=== PATIENT | female | born 1980 | race Caucasian/White ===

== ENCOUNTER 2023-06-17 20:38 | Inpatient (IN) ==
[2023-06-17] MEDS ORDERED: INFLUENZA VIRUS QUADRIVALENT VACCINE (IIV4) 0.5 ML SYR IM ONE (21:14)
[2023-06-17] MEDS ORDERED: LIDOCAINE 1% LOCAL 20 ML VIAL INFIL PRN (21:26)
[2023-06-17] MEDS ORDERED: OXYTOCIN 30 UNITS/500 ML BAG IV PRN (21:26)
[2023-06-17] MEDS ORDERED: DINOPROSTONE 10 MG INSERT PV ONE (21:45)
--- NOTE | 2023-06-17 21:58 | History & Physical Report ---
Date of Service June 17, 2023 Assessment & Plan (1) Advanced maternal age in multigravida: Plan: Patient is a 42-year-old -0-0-1 at 39 weeks and 6 days of gestation presenting today for induction of labor at term, Vital signs stable afebrile, heart rate reassuring, GBS negative, Cervix unfavorable, Plan to admit, labs, IV fluids, cervical ripening with Cervidil, Patient understands induction may take 1 to 2 days and explained what to expect, All questions were answered. Admission and Anticipated Discharge Date Admission Date: June 17, 2023 History of Present Illness Chief Complaint: Induction of labor Primary Care Provider: Mary López MD Patient is a 42-year-old -0-0-1 at 39 weeks and 6 days of gestation who was scheduled for induction of labor at term for advanced maternal age. She has no complaints, denies contractions, leakage of fluid, vaginal bleeding. She reports good movements. Her has been uncomplicated except AMA, genetic testing was negative/low risk. She has seen MFM and had ultrasound twice and they were normal. She had COVID-19 during this at 29 weeks, recovered well. GBS is negative. Allergies Allergy/AdvReac Type Severity Reaction Status Date / Time No Known Allergies Allergy Unverified 06/17/23 21:00 Home Medications Medication Instructions Recorded Confirmed Type vit no.95-ferrous 1 tab PO DAILY 06/17/23 06/17/23 History fumarate 28 mg-folic acid 800 mcg tablet () Patient History Medical History No known health problems Surgical History No history of previous surgery Social History Smoking Status: Never smoker Hx Alcohol Use: No Hx Substance Use: No Preferred Language: Czech Communication Ability: Effective Commodity Merchant Required: No Beliefs That Will Affect Care: None marital status: marital status details: Forrest Riojas Current Living Situation: Spouse and Family Current Living Situation Comment: and 16 year old daughter. current occupational status: employed current occupation: [employer] Other Information That Helps Us Care for You: No Feels Safe at Home: Yes Safety Concerns: Feels Safe At This Time Diet: regular Assistive Devices: None OB History Full-term on [employer] History No history of STDs, no history of chlamydia, gonorrhea, herpes Review of Systems as per Subjective / HPI Physical Exam Constitutional: WD/WN, vitals as above well developed, well nourished and comfortable Gastrointestinal (Abdomen): normal bowel sounds, soft, nontender, no hepatosplenomegaly (Gravid, Jacinto 7-8) Genitourinary: normal external appearance OB Exam Abdomen: + vertex (Confirmed by bedside ultrasound) Manual OB Exam: + cervical dilation (0, closed, thick, posterior) and + station high OB Exam Monitor Tracing: + external uterine monitor used and + category I Results & Data Vital Signs (Past 12 Hours) Vital Signs Temp Pulse Resp BP 06/17/23 21:06 86 130/68 06/17/23 21:01 37.1 C 18 Monitoring External Monitor The heart rate category 1, baseline of 130s to 140s, moderate variability, good accelerations, there was episode of maternal heart rate when the patient was sitting up. (1) Advanced maternal age in multigravida Trimester: third trimester Qualified Code(s): O09.523 - Supervision of elderly multigravida, third trimester
[2023-06-17 21:59] LABS: Hematocrit (blood only) 33.3 % (37.0-47.0); Hemoglobin 11.5 g/dl (12.0-16.0); Mean Corpuscular Hgb Conc 34.5 g/dL (32.0-36.0); Mean Corpuscular Volume 86.9 fL (80.0-100.0); Mean Platelet Volume 10.5 fL (9.4-12.4); Platelet Count 269 K/uL (130-400); RDW Coefficient of Variation 13.4 % (11.5-14.5); RDW Standard Deviation 41.3 fL (36.4-46.3); Red Blood Count 3.83 M/uL (4.20-5.40)
[2023-06-17 22:13] LABS: Albumin Globulin Ratio 1.2 (0.9-2); Albumin Level 3.5 gm/dl (3.4-5.0); BUN Creatinine Ratio 14.8 (10-20); Bilirubin,Total 0.3 mg/dl (0.2-1.0); Calcium 9.6 mg/dl (8.6-10.3); Creatinine Clr Calc Pharmacy 129.9 ml/min; Est GFR (African American) 129.6 ml/min; Est GFR (Non-African American) 111.8 ml/min; Potassium 3.7 mmol/L (3.5-5.1); Total Protein 6.5 gm/dl (6.0-8.3)
[2023-06-17] MEDS ORDERED: diphenhydrAMINE Capsule 25 MG CAP PO PRN (22:35)
[2023-06-17] MEDS ORDERED: MELATONIN 3 MG TAB PO PRN (22:35)
[2023-06-17] MEDS ORDERED: BUTORPHANOL TARTRATE 1 MG/ML VIAL IV PRN (22:35)
--- NOTE | 2023-06-17 22:35 | Procedure Note ---
Procedure Note Date of Service June 17, 2023 Note Cervidil is placed in posterior cervix. FHR categ I Continue to monitor closely. Coding
[2023-06-17] MEDS ORDERED: NALOXONE HCL 1 MG in SODIUM CHLORIDE 0.9% 1,000 ML IV PRN (22:41)
[2023-06-17] MEDS ORDERED: BUPIVACAINE 0.25% PF 30 ML VIAL EPI STA (22:41)
[2023-06-17] MEDS ORDERED: fentaNYL citrate PF 100 MCG/2 ML VIAL EPI PRN (22:41)
[2023-06-17] MEDS ORDERED: ROPIVACAINE 0.5% PF 5 MG/ML 20 ML VIAL EPI PRN (22:41)
[2023-06-17] MEDS ORDERED: LIDOCAINE 2%/EPINEPHRINE 1:200,000 20 ML PF EPI STA (22:41)
[2023-06-17] MEDS ORDERED: LIDOCAINE 2% MPF LOCAL 5 ML VIAL EPI PRN (22:41)
[2023-06-17] MEDS ORDERED: diphenhydrAMINE 50 MG/ML VIAL IV PRN (22:41)
[2023-06-17] MEDS ORDERED: SODIUM CHLORIDE 0.9% PF INJ 10 ML VIAL EPI PRN (22:41)
[2023-06-17] MEDS ORDERED: SODIUM CHLORIDE 0.9% PF INJ 10 ML VIAL EPI STA (22:41)
[2023-06-17] MEDS ORDERED: fentaNYL citrate PF 100 MCG/2 ML VIAL EPI STA (22:41)
[2023-06-17] MEDS ORDERED: ONDANSETRON INJ 2 MG/ML 2 ML VIAL IV PRN (22:41)
[2023-06-17] MEDS ORDERED: ePHEDrine sulfate 50 MG/ML AMP IV PRN (22:41)
[2023-06-17] MEDS ORDERED: BUPIVACAINE 0.25% PF 30 ML VIAL EPI PRN (22:41)
[2023-06-17] MEDS ORDERED: NALOXONE HCL 0.4 MG/1 ML VIAL/CARP IV PRN (22:41)
[2023-06-17] MEDS ORDERED: NALBUPHINE HCL 5 MG in SYRINGE 0 ML IV PRN (22:41)
[2023-06-17] MEDS ORDERED: fentANYL 2 MCG/ML BUPIVacaine 0.125%-NSS 100ML BAG EPI PRN (22:41)
--- NOTE | 2023-06-17 22:42 | Anesthesiology Consultation ---
Date of Service June 17, 2023 Assessment & Plan Chart Review Chart Review: Patient NOT seen in Pre Admission Testing and Acceptable Risk for Labor Epidural Consults Requested none ASA ASA2 Proposed Anesthesia Anesthesia Type: Labor Epidural Risk / Benefits Reviewed With: PT / POA / Parent / Guardian, Accepts Plan and Informed Consent Obtained History Height/Weight Height: 5 ft 5 in Weight: 85.729 kg Allergies Allergy/AdvReac Type Severity Reaction Status Date / Time No Known Allergies Allergy Unverified 06/17/23 21:00 Medications Home Medications Medication Instructions Recorded Confirmed Last Taken vit no.95-ferrous 1 tab PO DAILY 06/17/23 06/17/23 06/17/23 09:00 fumarate 28 mg-folic acid 800 mcg tablet () Past Medical History Medical History No known health problems Exercise / Class Metabolic Activity II 4-5 Yardwork/Stairs/Walk up hill Past Surgical History Surgical History No history of previous surgery Past Anesthesia History No Hx of Anesthesia Complications and No Family Hx of Anesthesia Complications History of PONV No Hx of PONV and No Hx of Motion Sickness Social History Smoking Status: Never smoker Hx Alcohol Use: No Hx Substance Use: No substance use type: does not use Physical Exam Vital Signs Last Vital Signs Temp 37.1 C 06/17/23 21:01 Pulse 86 06/17/23 21:06 Resp 18 06/17/23 21:01 BP 130/68 06/17/23 21:06 ENMT Mouth: no dentition abnormality Thyromental Distance: > or= 3.5 Finger Breadths Mallampati Class: II Neck normal visual inspection Respiratory normal respiratory effort Auscultation: lungs clear to auscultation bilaterally Cardiovascular Rate/Rhythm: regular rate and regular rhythm Psychiatric Orientation: alert Testing Laboratory Results 06/17/23 21:36 06/17/23 21:36
[2023-06-18] MEDS ORDERED: CALCIUM CARBONATE 500 MG CHEWABLE TAB PO PRN (11:36)
--- NOTE | 2023-06-18 11:36 | Obstetrical Progress Note ---
Date of Service June 18, 2023 Assessment & Plan (1) Advanced maternal age in multigravida: Plan: Misoprostol 25 mcg SL q4h Pit after AROM Epidural if patient requests Anticipate Admission and Anticipated Discharge Date Admission Date: June 17, 2023 Subjective Patient was walking, Cervidil was removed without issues Physical Exam Genitourinary: FHT:baseline 150 mod variability, +accels, no decls, cat I tracing Nolic: irregular ctx Cx:1.5/10/-3 membranes swept Results & Data Vital Signs (Past 12 Hours) Vital Signs Temp Pulse Resp BP 06/18/23 07:40 36.9 C 20 06/18/23 07:31 74 129/75 06/18/23 02:30 18 06/18/23 02:30 36.9 C 18 06/18/23 02:01 93 H 118/69 (1) Advanced maternal age in multigravida Trimester: third trimester Qualified Code(s): O09.523 - Supervision of elderly multigravida, third trimester
[2023-06-18] MEDS: miSOPROStoL 25 MCG TAB SL SCH ×2 (11:43→20:09)
[2023-06-18] MEDS ORDERED: OXYTOCIN 30 UNITS/500 ML BAG IV PRN (16:18)
--- NOTE | 2023-06-18 16:20 | Obstetrical Progress Note ---
Date of Service June 18, 2023 Assessment & Plan (1) Advanced maternal age in multigravida: Plan: Misoprostol s/p 1 dose Start oxytocin for augmentation Epidural if patient requests Anticipate Admission and Anticipated Discharge Date Admission Date: June 17, 2023 Subjective Patient doing well, contractions more painful. Agreeable to AROM Physical Exam Genitourinary: FHT: baseline 140 moderate variability, +accels, no decls, cat I tracing [place]: every 2-3 min Cx; 2.5/50/-3 AROM, moderate blood tinged fluid, no cord felt, no complications. Results & Data Vital Signs (Past 12 Hours) Vital Signs Temp Pulse Resp BP 06/18/23 15:53 75 135/76 06/18/23 11:33 36.7 C 85 20 130/68 06/18/23 07:40 36.9 C 20 06/18/23 07:31 74 129/75 (1) Advanced maternal age in multigravida Trimester: third trimester Qualified Code(s): O09.523 - Supervision of elderly multigravida, third trimester
[2023-06-18] MEDS: LACTATED RINGER'S 1,000 ML IV PRN ×2 (17:27→20:45)
[2023-06-18] MEDS ORDERED: fentaNYL citrate PF 100 MCG/2 ML VIAL ONE (20:16)
[2023-06-18] MEDS ORDERED: ePHEDrine sulfate 50 MG/ML AMP ONE (20:16)
[2023-06-18] MEDS ORDERED: BUPIVACAINE 0.25% PF 30 ML VIAL ONE (20:17)
[2023-06-18] MEDS ORDERED: SODIUM CHLORIDE 0.9% PF INJ 10 ML VIAL ONE (20:17)
[2023-06-18] MEDS ORDERED: LIDOCAINE 2%/EPINEPHRINE 1:200,000 20 ML PF ONE (20:17)
[2023-06-18] MEDS ORDERED: fentANYL 2 MCG/ML BUPIVacaine 0.125%-NSS 100ML BAG ONE (20:17)
[2023-06-18] MEDS ORDERED: diphenhydrAMINE 50 MG/ML VIAL IV PRN (20:37)
[2023-06-18] MEDS ORDERED: NALOXONE HCL 0.4 MG/1 ML VIAL/CARP IV PRN (20:37)
[2023-06-18] MEDS ORDERED: fentaNYL citrate PF 100 MCG/2 ML VIAL EPI PRN (20:37)
[2023-06-18] MEDS ORDERED: NALOXONE HCL 1 MG in SODIUM CHLORIDE 0.9% 1,000 ML IV PRN (20:37)
[2023-06-18] MEDS ORDERED: BUPIVACAINE 0.25% PF 30 ML VIAL EPI PRN (20:37)
[2023-06-18] MEDS ORDERED: LIDOCAINE 2% MPF LOCAL 5 ML VIAL EPI PRN (20:37)
[2023-06-18] MEDS ORDERED: BUPIVACAINE 0.25% PF 30 ML VIAL EPI STA (20:37)
[2023-06-18] MEDS ORDERED: SODIUM CHLORIDE 0.9% PF INJ 10 ML VIAL EPI STA (20:37)
[2023-06-18] MEDS ORDERED: ROPIVACAINE 0.5% PF 5 MG/ML 20 ML VIAL EPI PRN (20:37)
[2023-06-18] MEDS ORDERED: NALBUPHINE HCL 5 MG in SYRINGE 0 ML IV PRN (20:37)
[2023-06-18] MEDS ORDERED: ePHEDrine sulfate 50 MG/ML AMP IV PRN (20:37)
[2023-06-18] MEDS ORDERED: fentaNYL citrate PF 100 MCG/2 ML VIAL EPI STA (20:37)
[2023-06-18] MEDS ORDERED: LIDOCAINE 2%/EPINEPHRINE 1:200,000 20 ML PF EPI STA (20:37)
[2023-06-18] MEDS ORDERED: SODIUM CHLORIDE 0.9% PF INJ 10 ML VIAL EPI PRN (20:37)
--- NOTE | 2023-06-18 20:40 | Anesthesiology Consultation ---
Date of Service June 18, 2023 Assessment & Plan Chart Review Chart Review: Patient NOT seen in Pre Admission Testing and Acceptable Risk for Labor Epidural Consults Requested none ASA ASA2 Proposed Anesthesia Anesthesia Type: Labor Epidural Risk / Benefits Reviewed With: PT / POA / Parent / Guardian, Accepts Plan and Informed Consent Obtained History Height/Weight Height: 5 ft 5 in Weight: 85.729 kg Allergies Allergy/AdvReac Type Severity Reaction Status Date / Time No Known Allergies Allergy Unverified 06/17/23 21:00 Medications Home Medications Medication Instructions Recorded Confirmed Last Taken vit no.95-ferrous 1 tab PO DAILY 06/17/23 06/17/23 06/17/23 09:00 fumarate 28 mg-folic acid 800 mcg tablet () Active Medications Generic Name Dose Route Start Last Admin Trade Name Freq PRN Reason Stop Dose Admin Calcium Carbonate 500 mg 06/18/23 11:36 06/18/23 11:44 Calcium Carbonate 500 Mg Chewable Tab PO 07/18/23 11:35 500 mg Q4 PRN Administration Indigestion Lactated Ringer's 1,000 mls @ 150 mls/hr 06/17/23 21:26 06/18/23 20:45 Lr IV 06/19/23 21:25 125 mls/hr .[id number] PRN Administration L&D Protocol Protocol Oxytocin 30 units in 500 mls @ 6 mls/hr 06/18/23 16:18 06/18/23 20:45 Pitocin IV 06/20/23 16:17 0.48 units/hr .Q24H PRN 8 mls/hr Labor Induction/Augmentation Titration Protocol 0.36 UNITS/HR Melatonin 3 mg 06/17/23 22:35 06/17/23 23:11 Melatonin 3 Mg Tab PO 07/17/23 22:34 3 mg HS PRN Administration Sleep NPO Date Last Intake of Fluids: 06/18/23 Time Last Intake of Fluids: 20:00 Date Last Intake of Solids: 06/18/23 Time Last Intake of Solids: 17:00 Past Medical History Medical History No known health problems Exercise / Class Metabolic Activity 1 > 8 Run/Swim/Ski/Tennis Past Surgical History Surgical History No history of previous surgery Past Anesthesia History No Hx of Anesthesia Complications and No Family Hx of Anesthesia Complications History of PONV No Hx of PONV and No Hx of Motion Sickness Social History Smoking Status: Never smoker Hx Alcohol Use: No Hx Substance Use: No substance use type: does not use Review of Systems ROS Unobtainable: All systems reviewed & are unremarkable except as noted in HPI & below Physical Exam Vital Signs Last Vital Signs Temp 36.7 C 06/18/23 19:00 Pulse 85 06/18/23 20:32 Resp 18 06/18/23 19:00 BP 117/72 06/18/23 19:03 Pulse Ox 99 06/18/23 20:32 ENMT Mouth: no TMJ abnormality Thyromental Distance: > or= 3.5 Finger Breadths Mallampati Class: II Neck normal visual inspection and trachea midline; neck extension not limited Respiratory normal respiratory effort Auscultation: lungs clear to auscultation bilaterally Cardiovascular Rate/Rhythm: regular rate and regular rhythm Heart Sounds: no murmur Musculoskeletal Spine: normal cervical ROM Extremities: full ROM of extremities Neurologic moves all extremities Psychiatric Orientation: alert and oriented x 3 Testing Laboratory Results 06/17/23 21:36 06/17/23 21:36
[2023-06-19] MEDS: LACTATED RINGER'S 1,000 ML IV PRN ×3 (00:46→08:42)
[2023-06-19] MEDS: fentANYL 2 MCG/ML BUPIVacaine 0.125%-NSS 100ML BAG EPI PRN ×2 (05:35→08:11)
--- NOTE | 2023-06-19 06:35 | Obstetrical Progress Note ---
Date of Service June 19, 2023 Assessment & Plan (1) Advanced maternal age in multigravida: Plan: Patient to stop pushing at this time as she is not complete, nursing staff updated Will allow anterior lip to resolve prior to pushing Anticipate Admission and Anticipated Discharge Date Admission Date: June 17, 2023 Subjective Patient has been pushing with nursing. Called complete overnight by nursing staff Physical Exam Genitourinary: heart tracing: Baseline 150, minimal to moderate variability, no accelerations, variable decelerations, category 2 tracing Tocometer: Contractions every 3 to 6 minutes Cervix: Swollen anterior lip/100, 0 station, caput noted Results & Data Vital Signs (Past 12 Hours) Vital Signs Temp Pulse Resp BP Pulse Ox 06/19/23 06:31 109 H 122/64 06/19/23 06:30 106 H 97 06/19/23 06:25 98 06/19/23 06:25 125 H 06/19/23 06:25 132 H 89 L 06/19/23 06:20 123 H 79 L 06/19/23 06:16 123 H 134/66 06/19/23 06:15 126 H 86 L 06/19/23 06:10 120 H 99 06/19/23 06:05 116 H 98 06/19/23 06:01 118 H 125/73 06/19/23 06:00 37.1 C 119 H 18 98 06/19/23 05:57 122 H 86 L 06/19/23 05:55 121 H 99 06/19/23 05:50 111 H 84 L 06/19/23 05:46 125 H 06/19/23 05:46 116 H 130/71 83 L 06/19/23 05:45 119 H 92 06/19/23 05:40 106 H 99 06/19/23 05:35 130 H 99 06/19/23 05:32 122 H 87 L 06/19/23 05:31 107 H 138/70 06/19/23 05:30 111 H 98 06/19/23 05:25 118 H 99 06/19/23 05:20 111 H 99 06/19/23 05:16 117 H 117/64 06/19/23 05:15 111 H 100 06/19/23 05:10 104 H 97 06/19/23 05:05 98 H 97 06/19/23 05:01 108 H 110/56 L 06/19/23 05:00 37.1 C 107 H 18 98 06/19/23 04:55 103 H 98 06/19/23 04:50 100 H 98 06/19/23 04:46 100 H 117/61 06/19/23 04:45 100 H 99 06/19/23 04:40 106 H 99 06/19/23 04:35 112 H 100 06/19/23 04:31 115 H 128/63 06/19/23 04:30 148 H 100 06/19/23 04:25 105 H 99 06/19/23 04:20 108 H 99 06/19/23 04:16 110 H 132/77 06/19/23 04:15 110 H 100 06/19/23 04:10 104 H 100 06/19/23 04:05 110 H 100 06/19/23 04:01 107 H 130/82 06/19/23 04:00 107 H 18 99 06/19/23 03:55 104 H 100 06/19/23 03:50 112 H 100 06/19/23 03:46 99 H 139/79 06/19/23 03:45 94 H 100 06/19/23 03:40 98 H 100 06/19/23 03:35 98 H 100 06/19/23 03:32 100 H 144/77 H 06/19/23 03:30 101 H 100 06/19/23 03:25 111 H 95 06/19/23 03:20 99 H 100 06/19/23 03:16 111 H 135/79 06/19/23 03:15 109 H 100 06/19/23 03:10 106 H 100 06/19/23 03:05 103 H 100 06/19/23 03:02 86 130/71 06/19/23 03:00 37.6 C H 84 18 100 06/19/23 02:55 94 H 99 06/19/23 02:50 93 H 98 06/19/23 02:46 93 H 125/74 06/19/23 02:45 88 99 06/19/23 02:40 96 H 99 06/19/23 02:35 100 H 100 06/19/23 02:31 92 H 137/76 06/19/23 02:30 93 H 99 06/19/23 02:25 89 98 06/19/23 02:20 89 98 06/19/23 02:17 95 H 135/77 06/19/23 02:15 101 H 100 06/19/23 02:10 95 H 100 06/19/23 02:05 95 H 100 06/19/23 02:00 97 H 18 132/68 100 06/19/23 01:55 96 H 100 06/19/23 01:50 103 H 100 06/19/23 01:47 100 H 131/81 06/19/23 01:45 100 H 100 06/19/23 01:40 100 H 100 06/19/23 01:35 103 H 100 06/19/23 01:30 98 H 129/65 100 06/19/23 01:25 106 H 100 06/19/23 01:19 106 H 100 06/19/23 01:15 109 H 131/60 06/19/23 01:14 116 H 100 06/19/23 01:09 102 H 100 06/19/23 01:04 99 H 100 06/19/23 01:00 36.9 C 96 H 18 132/71 06/19/23 00:59 105 H 98 06/19/23 00:54 104 H 100 06/19/23 00:49 122 H 100 06/19/23 00:46 113 H 137/71 06/19/23 00:44 104 H 100 06/19/23 00:39 107 H 100 06/19/23 00:34 111 H 100 06/19/23 00:29 104 H 100 06/19/23 00:24 96 H 99 06/19/23 00:19 99 H 100 06/19/23 00:15 88 105/56 L 06/19/23 00:14 88 98 06/19/23 00:09 87 99 06/19/23 00:04 92 H 99 06/19/23 00:02 88 114/61 06/19/23 00:00 18 06/19/23 00:00 18 06/18/23 23:59 96 H 100 06/18/23 23:54 96 H 100 06/18/23 23:49 83 100 06/18/23 23:46 80 128/71 06/18/23 23:44 83 100 06/18/23 23:39 86 99 06/18/23 23:34 100 06/18/23 23:34 105 H 11/10/23 23:34 96 H 141/74 H 06/18/23 23:33 118 H 94 06/18/23 23:29 87 100 06/18/23 23:24 91 H 100 06/18/23 23:19 92 H 100 06/18/23 23:15 86 109/58 L 06/18/23 23:14 89 99 06/18/23 23:09 87 100 06/18/23 23:04 91 H 100 06/18/23 23:01 83 113/58 L 06/18/23 23:00 18 06/18/23 23:00 36.9 C 18 06/18/23 22:59 85 100 06/18/23 22:54 100 H 100 06/18/23 22:49 96 H 100 06/18/23 22:45 93 H 107/56 L 06/18/23 22:44 93 H 100 06/18/23 22:39 94 H 100 06/18/23 22:34 86 100 06/18/23 22:32 81 113/58 L 06/18/23 22:29 91 H 98 06/18/23 22:24 76 97 06/18/23 22:19 77 97 06/18/23 22:16 80 98/56 L 06/18/23 22:14 83 97 06/18/23 22:12 78 109/57 L 06/18/23 22:09 77 97 06/18/23 22:05 88 112/58 L 06/18/23 22:04 90 97 06/18/23 22:00 83 18 120/65 06/18/23 21:59 80 97 06/18/23 21:55 96 H 129/72 06/18/23 21:54 103 H 98 06/18/23 21:52 116 H 137/78 06/18/23 21:49 113 H 100 06/18/23 21:46 85 116/59 L 06/18/23 21:44 88 98 06/18/23 21:40 98 H 117/57 L 06/18/23 21:39 97 H 98 06/18/23 21:35 100 H 125/63 06/18/23 21:34 107 H 99 06/18/23 21:31 103 H 135/63 06/18/23 21:30 18 06/18/23 21:30 18 06/18/23 21:29 98 H 99 06/18/23 21:26 106 H 142/71 H 06/18/23 21:24 113 H 98 06/18/23 21:21 115 H 138/69 06/18/23 21:19 96 H 98 06/18/23 21:18 97 H 123/58 L 06/18/23 21:16 100 H 123/60 06/18/23 21:15 18 06/18/23 21:15 18 06/18/23 21:15 18 06/18/23 21:15 18 06/18/23 21:14 92 H 111/54 L 97 06/18/23 21:12 101 H 120/60 06/18/23 21:10 100 H 115/58 L 06/18/23 21:09 111 H 98 06/18/23 21:08 99 H 134/58 L 06/18/23 21:04 82 99 06/18/23 20:59 84 99 06/18/23 20:54 119 H 100 06/18/23 20:50 18 06/18/23 20:50 36.6 C 18 06/18/23 20:47 85 98 06/18/23 20:42 89 99 06/18/23 20:37 84 98 06/18/23 20:32 85 99 06/18/23 19:03 84 117/72 06/18/23 19:00 36.7 C 18 06/18/23 19:00 18 06/18/23 19:00 36.7 C 18 06/18/23 18:36 37.0 C 79 20 117/70 (1) Advanced maternal age in multigravida Trimester: third trimester Qualified Code(s): O09.523 - Supervision of elderly multigravida, third trimester
[2023-06-19] MEDS ORDERED: LIDOCAINE 2% MPF LOCAL 5 ML VIAL ONE (08:17)
[2023-06-19] MEDS ORDERED: fentaNYL citrate PF 100 MCG/2 ML VIAL ONE (08:17)
[2023-06-19] MEDS ORDERED: LIDOCAINE 2%/EPINEPHRINE 1:200,000 20 ML PF ONE (08:18)
[2023-06-19] MEDS ORDERED: NURSING L&D Epidural Breakthrough Pain Update ONE (08:25)
[2023-06-19] MEDS ORDERED: miSOPROStoL 200 MCG TAB ONE (11:17)
[2023-06-19] MEDS ORDERED: METHYLERGONOVINE MALEATE 0.2 MG/ML AMP ONE (11:18)
[2023-06-19] MEDS ORDERED: HYDROCORTISONE ACETATE 25 MG SUPP PR PRN (11:29)
[2023-06-19] MEDS ORDERED: BENZOCAINE 20% SPRY 85 APPLN/85 GM CAN EXT PRN (11:29)
[2023-06-19] MEDS ORDERED: DIPHTHERIA/TETANUS/PERTUSSIS Vaccine (Tdap, Age 7+yrs) 0.5mL SYR/VL IM ONE (11:29)
[2023-06-19] MEDS ORDERED: OXYTOCIN 30 UNITS/500 ML BAG IV PRN (11:29)
[2023-06-19] MEDS ORDERED: miSOPROStoL 200 MCG TAB PR ONE (11:29)
[2023-06-19] MEDS ORDERED: METHYLERGONOVINE MALEATE 0.2 MG/ML AMP IM ONE (11:29)
[2023-06-19] MEDS ORDERED: bisacodyL 10 MG SUPP PR PRN (11:29)
--- NOTE | 2023-06-19 11:29 | Delivery Summary ---
Vaginal Delivery Summary Date of Service June 19, 2023 Vaginal Delivery Summary DELIVERY NOTE Patient delivered a live female in left occiput anterior presentation there was loose nuchal cord which was easily reduced. was delivered and placed on mother's abdomen. Delayed cord clamping was performed. Cord blood is obtained Cord gasses are obtained Meconium is absent Placenta is spontaneously delivered. Placenta appears grossly normal and has 3 vessel cord Inspection of the perineum showed a second-degree midline laceration. Laceration is repaired in layers with 2-0 Vicryl in layers Rectal exam post repair showed good sphincter tone no sutures palpated in the rectum. Estimated blood loss is 450 cc per Infants weight and scores are in the pediatric record Mother and baby are stable in in the recovery
--- NOTE | 2023-06-19 11:37 | Anesthesia Procedure Note ---
Date of Service June 19, 2023 Anesthesia Epidural Re-Dose Vital Signs Temp Pulse Resp BP Pulse Ox 37.6 C H 113 H 24 132/67 100 06/19/23 10:28 06/19/23 11:23 06/19/23 11:00 06/19/23 11:23 06/19/23 11:20 Notes Pain Intensity: 8 Dilatation (cm): 10.0 Effacement (%): 100 Called by nursing to evaluate epidural as the patient is having increased pain. The epidural was re-dosed with the following medications (all medications via epidural route) after negative aspiration of the epidural catheter for CSF/HEME. 2% lidocaine 5ml with fentanyl 100mcg. After Epidural Re-Dose Mental Status: alert / awake / arousable Pain: improving with treatment Airway Patency, RR, SpO2: stable & adequate BP & HR: stable & adequate
[2023-06-19 12:39] LABS: Base Excess Cord Arterial Bld -8.2 mEq/L (-9-1.8); Base Excess Cord Venous Blood -7.4 mEq/L (-7.7-1.9); CO2 Cord Arterial Blood 46 mmHg (39.1-73.5); Cord Venous Blood HCO3 17 mmol/L (18.4-26.8); Cord Venous Blood PCO2 32 mmHg (30.4-57.2); Cord Venous Blood PO2 38 mmHg (14.1-43.3); Cord Venous Blood pH 7.34 (7.20-7.44); HCO3 Cord Arterial Blood 19 mmol/L (19.7-28.5); O2 Saturation Cord Venous Bld 70.8 % (<68); PO2 Cord Arterial Blood 29 mmHg (4.1-31.7); pH Cord Arterial Blood 7.23 (7.1-7.38)
[2023-06-19] MEDS: IBUPROFEN 600 MG TAB PO PRN ×3 (12:55→23:15)
[2023-06-19] MEDS: DOCUSATE SODIUM 100 MG CAP PO SCH (21:00)
[2023-06-19] MEDS: ACETAMINOPHEN 325 MG TAB PO PRN (23:16)
[2023-06-20] MEDS ORDERED: PRENATAL VITAMIN 1 TAB PO SCH (08:00)
[2023-06-20 08:07] LABS: Hematocrit (blood only) 30.2 % (37.0-47.0); Hemoglobin 10.4 g/dl (12.0-16.0); Mean Corpuscular Hemoglobin 30.1 pg (25.0-34.0); Mean Corpuscular Hgb Conc 34.4 g/dL (32.0-36.0); Mean Corpuscular Volume 87.3 fL (80.0-100.0); Mean Platelet Volume 10.6 fL (9.4-12.4); Platelet Count 222 K/uL (130-400); RDW Coefficient of Variation 14.1 % (11.5-14.5); RDW Standard Deviation 43.9 fL (36.4-46.3); Red Blood Count 3.46 M/uL (4.20-5.40); White Blood Count 15.85 K/ul (4.8-10.8)
[2023-06-20] MEDS: IBUPROFEN 600 MG TAB PO PRN ×2 (08:14→13:20)
[2023-06-20] MEDS: DOCUSATE SODIUM 100 MG CAP PO SCH (08:14)
--- NOTE | 2023-06-20 10:53 | Obstetrical Progress Note ---
Date of Service June 20, 2023 Assessment & Plan (1) Normal course: PPD #1 pt doing well D/home with instructions Subjective Ambulation: ambulating normally Voiding: no voiding problems Passing Gas:: Yes Diet Tolerance:: regular diet Lochia:: Small Feeding Type:: breast feeding Review of Systems All systems reviewed & are unremarkable except as noted in HPI & below Physical Exam Constitutional WD/WN, vitals as above well developed and well nourished Eyes PERRL, conjunctivae normal, anicteric sclerae Neck trachea midline, no thyromegaly Respiratory normal respiratory effort, lungs clear to auscultation Auscultation: no crackles, no rales and no wheezes Cardiovascular RRR, no murmur, no edema Gastrointestinal (Abdomen) normal bowel sounds, soft, nontender, no hepatosplenomegaly Uterus is below umbilicus Musculoskeletal no cyanosis or clubbing, extremities motor strength 5/5 Skin no rashes, warm and dry Neurologic patellar DTR's 2+ bilat, sensation intact Psychiatric A+Ox3, euthymic affect Genitourinary normal external appearance Results & Data Vital Signs (Past 12 Hours) Vital Signs Temp Pulse Resp BP Pulse Ox O2 Del Method 06/20/23 07:35 36.4 C L 84 18 118/69 99 Room Air 06/20/23 04:10 36.6 C 77 18 111/76 98 Room Air 06/20/23 00:00 36.5 C 67 18 98/67 L 99 Room Air
[2023-06-20] MEDS: ACETAMINOPHEN 325 MG TAB PO PRN (11:44)
[2023-06-20] MEDS ORDERED: bisacodyL 5 MG TABEC PO SCH (20:00)
--- OUTSIDE RECORDS SUMMARY | 2023-06-21 22:05 | External Medical Summary | Summary of Care ---
Author Name Unknown Organization [facility] Address [address] [place] [address] Phone [phone] Care Team Providers Care Window Shade Ring Coverer Name Role Phone Unavailable Primary Care Provider Unavailabl e Reason for Visit * Reason Comments Return Visit Encounter Details Date Type Department Care Team (Late st Contact Info) Description 06/09/2023 9:00 AM EDT Office Visit Gynecology/Obstetric s [facility] [address] [facility] [place] [address] Marcy Mendez CRNP [address] [place] [address] [facility], Non Stress Tests [facility] [address] [place] [address] Multigravida of advanced maternal age in third trimester*; Supervision of high risk in third trimester; Health counseling; COVID-19 affecting , antepartum Allergies No known active allergiesdocumented as of this encounter (statuses as of 06/09/2023) Medications Medication Sig Dispensed Refills Start Date End Date Status 28-0.8 MG Oral Tablet Take by mouth. 0 Active documented as of this encounter (statuses as of 06/09/2023) Active Problems Problem Noted Date Diagnosed Date COVID-19 affecting , antepartum 023 Overview: + test at 29w 5d Health counseling 01/08/2023 Overview: Problem Action Taken Date entered Entered by Date resolved Current needs or questions Patient denies having any current needs or questions 01/08/2023 Whit Velázquez RN 01/08/2023 Problem Action Taken Date entered Entered by Date resolved 2nd trimester edu given 02/08/2023 Whit Velázquez RN 02/08/2023 Problem Action Taken Date entered Entered by Date resolved Need for food assistance referred to [facility] and local food ag[place] 02/08/2023 Whit Velázquez RN 02/08/2023 Problem Action Taken Date entered Entered by Date resolved Current needs or questions Patient denies having any current needs or questions 03/16/2023 Whit Velázquez RN 03/16/2023 Problem Action Taken Date entered Entered by Date resolved Current needs or questions Patient denies having any current needs or questions 04/07/2023 Whit Velázquez RN 04/07/2023 Problem Action Taken Date entered Entered by Date resolved Current needs or questions Patient denies having any current needs or questions 04/22/2023 Whit Velázquez RN 04/22/2023 Problem Action Taken Date entered Entered by Date resolved Current needs or questions Patient denies having any current needs or questions 05/05/2023 Whit Velázquez RN 05/05/2023 Problem Action Taken Date entered Entered by Date resolved Current needs or questions Patient denies having any current needs or questions 05/19/2023 Whit Velázquez RN 05/19/2023 Problem Action Taken Date entered Entered by Date resolved Current needs or questions Patient denies having any current needs or questions 05/26/2023 Rosa Nguyen RN 05/26/2023 Problem Action Taken Date entered Entered by Date resolved Current needs or questions Patient denies having any current needs or questions 06/02/2023 Whit Velázquez RN 06/02/2023 Problem Action Taken Date entered Entered by Date resolved Current needs or questions Patient denies having any current needs or questions 06/09/2023 Whti Velázquez RN 06/09/2023 , supervision, high-risk 12/16/2022 AMA (advanced maternal age) multigravida 35+ 11/2022 Overview: Patient age 42 at time of delivery. NIPT: low risk Genetics referral: desires, referral placed MFM limited anatomy scan scheduled 12/15/2022 (normal for gestational age) MFM anatomy scan scheduled 01/22/2023 NST 38 weeks (weekly), deliver 39th week Last Assessment & Plan: QNatal low risk - reviewed by me Angioedema 04/13/2012 Overview: started 12/2011 Family history of hyperlipidemia 08/31/2011 Estimated Date of Delivery Comme nts Yes 06/18/2023 Based on Ultraso und documented as of this encounter (statuses as of 06/09/2023) Resolved Problems Problem Noted Date Diagnosed Date Resolved Date Abnormal glucose tolerance i n mother complicating 01/11/2023 04/07/2023 Overview: Failed early glucola. 3hr GTT ordered Last Assessment & Plan: Early GTT WNL - repeat at 24-28 weeks. Discussed option of GCT versus GTT for this next screening. Instructed her to make sure to carbohydrate load for three days prior to the oral glucose tolerance test. She will fast the evening before the GTT. Encounter for prescription for nuvaring 03/31/2016 03/16/2023 documented as of this encounter (statuses as of 06/09/2023) Immunizations Name Administration Dates Next Due TDAP (age 10 and older)(Boostrix) 04/07/2023 TDAP (age 11 and older)(Adacel) 08/09/2006 documented as of this encounter Social History Tobacco Use Types Packs/Day Years Used Date Smoking Tobacco: Never Smokeless Tobacco: Never Comments:no passive smoke ex posures Alcohol Use Standard Drinks/Week Comments Not Currently 0 (1 standard drink = 0.6 oz pur e alcohol) occ Hunger Vital Sign Answer Date Recorded Within the past 12 months, y ou worried that your food would run out before you got the money to buy more. Never true 12/11/19 23 Within the past 12 months, t he food you bought just didn't last and you didn't have money to get more. Never true 12/10/2022 [place] Depression Scale Answer Date Recorded [place] Depression Scale Total 1 05/19/2023 The thought of harming myself has occurred to me . Never 05/19/2023 Estimated Date of Delivery Comme nts Yes 06/18/2023 Based on Ultraso und Sex and Gender Information Value Date Recorded Sex Assigned at Female 12/10/2022 2:47 PM EDT Gender Identity Female 12/10/2022 2:47 PM EDT Sexual Orientation Straight 12/10/2022 2: 47 PM EDT Job Start Date Occupation Industry Not on file Not on file Not on file documented as of this encounter Last Filed Vital Signs Vital Sign Reading Time Taken Comments Blood Pressure 120/80 06/09/2023 9:33 AM EDT Pulse - - Temperature - - Respiratory Rate - - Oxygen Saturation - - Inhaled Oxygen Concentration - - Weight - - Height 162.6 cm (5' 4") 06/09/2023 9:33 AM EDT Body Mass Index - - documented in this encounter Progress Notes * Marcy Mendez CRNP - 06/09/2023 10:05 AM EDT 38w5d No concerns. Baby is active. No contractions or bleeding. IOL 06/14. ASSESSMENT assessment with Non-stress Test completed on 06/09/2023 at 38.5weeks gestation for indication of AMA heart baseline: 130 bpm Variability: Moderate Decelerations: absent Accelerations: present Contractions: None NST start time: 0846 NST stop time: 0925 NST strip reviewed, interpreted, and approved by OB Marcy panda CRNP . NST strip stored in clinic storage file documented in this encounter Nursing Notes * Whit Velázquez RN - 06/09/2023 9:16 AM EDT Patient seen by [facility] Assistant Professor Of English. Patient denies any questions or concerns. documented in this encounter Plan of Treatment Health Maintenance Due Date Last Done Comments Diabetes Screening 1980 Hepatitis B (1 of 3 - 3-dose series) 1980 Lipid Panel 1980 COVID-19 Vaccine (#1) 03/27/1981 Depression Screening 1992 HPV/Co-Test 2010 Mammogram 03/17/2023 03/17/2022 Influenza Vaccine (FLU shot) (#1) 2023 Cervical Cancer Screening 03/11/2025 Pap Smear 03/11/2025 03/11/2022, 03/10, 03/31/2016, Additional history exists DTaP,Tdap,and Td Vaccines (3 - Td or Tdap) 04/07/2033 04/07/2023, 08/09/2006 GARDASIL-HPV IMMUNIZATION SERIES Aged Out No longer eligible based on patient's age to complete this topic MENINGOCOCCAL (MENACTRA/MENVEO) Aged Out No longer eligible based on patient's age to complete this topic Pneumococcal Vaccine: Pediatrics (0 to 5 Years) and At-Risk Patients (6 to 64 Years) Aged Out No longer eligible based on patient's age to complete this topic documented as of this encounter Medical Devices Not on filedocumented as of this encounter Visit Diagnoses Diagnosis Multigravida of advanced maternal age in third trimester- Primary Supervision of high risk in third trimester Unspecified high-risk Health counseling Other specified counseling COVID-19 affecting , antepartum documented in this encounter
--- OUTSIDE RECORDS SUMMARY | 2023-06-21 22:05 | External Medical Summary | Summary of Care ---
Author Name Unknown Organization [facility] Address [address] [place] [address] Phone [phone] Care Team Providers Care Sap Bpc Architect Name Role Phone Unavailable Primary Care Provider Unavailabl e Encounter Details Date Type Department Care Team (Late st Contact Info) Description 06/11/2023 Telephone Gynecology/Obstetrics [facility] [address] [place] [address] Marcy Mendez CRNP [address] [place] [address] Allergies No known active allergiesdocumented as of this encounter (statuses as of 06/11/2023) Medications Medication Sig Dispensed Refills Start Date End Date Status 28-0.8 MG Oral Tablet Take by mouth. 0 Active documented as of this encounter (statuses as of 06/11/2023) Active Problems Problem Noted Date Diagnosed Date [...] resolved Need for food assistance referred to [facility] and local food [place] 02/08/2023 Whit Velázquez [...] having any current needs or questions 06/09/2023 Whit Velázquez RN 06/09/2023 , supervision, high-risk 12/16/2022 [...] as of this encounter (statuses as of 06/11/2023) Resolved Problems Problem Noted Date Diagnosed Date [...] as of this encounter (statuses as of 06/11/2023) Immunizations Name Administration Dates Next Due TDAP [...] money to get more. Never true 12/10/2022 [place] Depression Scale Answer Date Recorded [place] Depression Scale Total 1 05/19/2023 The thought [...] on file documented as of this encounter Miscellaneous Notes * Telephone Encounter - Dennise Guzman LPN - 06/11/2023 8:54 AM EDT Called pt, left vm to call office back, pt's IOL was bumped to 06/22/23. documented in this encounter Plan of Treatment [...]
--- OUTSIDE RECORDS SUMMARY | 2023-06-21 22:05 | External Medical Summary | Summary of Care ---
Author Name Unknown Organization [facility] Address [address] [place] [address] Phone [phone] Care Team Providers Care Rubber Mill Tender Name Role Phone Unavailable Primary Care Provider Unavailabl e Reason for Visit * Reason Comments Return Visit Encounter Details Date Type Department Care Team Description 05/05/2023 Office Visit Gynecology/Obstetric s [facility] [address] [place] [address] Marcy Mendez CRNP [address] [facility] [place] [address] Nurse Akash [facility] Return [facility] [address] [place] [address] Multigravida of advanced maternal age in third trimester*; Supervision of high risk in third trimester; Health counseling; COVID-19 affecting , antepartum Allergies No known active allergiesdocumented as of this encounter (statuses as of 05/05/2023) Medications Medication Sig Dispensed Refills Start Date End Date Status 28-0.8 MG Oral Tablet Take by mouth. 0 Active documented as of this encounter (statuses as of 05/05/2023) Active Problems Problem Noted Date COVID-19 affecting , antepartum 04/07/2023 Overview: + test at 29w 5d Health [...] resolved Need for food assistance referred to [facility] and local food [place] 02/08/2023 [...] or questions 05/05/2023 Whit Velázquez RN 05/05/2023 , supervision, high-risk 2022 AMA (advanced maternal age) multigravida 35+ 12/10/2022 Overview: Patient age 42 at time of delivery. NIPT: low risk Genetics referral: desires, referral placed MFM limited anatomy scan scheduled 12/15/2022 (normal for gestational age) MFM anatomy scan scheduled 01/22/2023 NST 38 weeks (weekly), deliver 39th week Last Assessment & Plan: QNatal low risk - reviewed by me Angioedema 04/13/2012 Overview: started 12/2011 Family history of hyperlipidemia 012 Estimated Date of Delivery Comme nts Yes 06/18/2023 Based on Ultraso und documented as of this encounter (statuses as of 05/05/2023) Resolved Problems Problem Noted Date Resolved Date Abnormal glucose tolerance in mother complicatin g 01/11/2023 04/07/2023 Overview: Failed early glucola. 3hr GTT ordered Last Assessment & Plan: Early GTT WNL - repeat at 24-28 weeks. Discussed option of GCT versus GTT for this next screening. Instructed her to make sure to carbohydrate load for three days prior to the oral glucose tolerance test. She will fast the evening before the GTT. Encounter for prescription for nuvaring 03/31/20 16 03/16/2023 documented as of this encounter (statuses as of 05/05/2023) Immunizations Name Administration Dates Next Due TDAP (age 10 and older)(Boostrix) 04/07/2023 TDAP (age 11 and older)(Adacel) 08/09/2006 documented as of this encounter Social History Tobacco Use Types Packs/Day Years Used Date Smoking Tobacco: Never Smokeless Tobacco: Never Comments:no passive smoke ex posures Alcohol Use Standard Drinks/Week Comments Not Currently 0 (1 standard drink = 0.6 oz pur e alcohol) occ Food Insecurity Answer Date Recorded Within the past 12 months, y ou worried that your food would run out before you got money to buy more. Never true 12/10/2022 Within the past 12 months, t he food you bought just didn't last and you didn't have money to get more. Never true 12/10/2022 Estimated Date of Delivery Comme nts Yes 06/18/2023 Based on Ultraso und Sex Assigned at Date Recorded Female 12/10/2022 2:47 PM E DT Job Start Date Occupation Industry Not on file Not on file Not on file documented as of this encounter Last Filed Vital Signs Vital Sign Reading Time Taken Comments Blood Pressure 100/70 05/05/2023 10:12 AM EDT Pulse - - Temperature - - Respiratory Rate - - Oxygen Saturation - - Inhaled Oxygen Concentration - - Weight 84.7 kg (186 lb 12.8 oz) 023 10:12 AM EDT Height 162.6 cm (5' 4") 05/05/2023 10:1 2 AM EDT Body Mass Index 32.06 05/05/2023 10:12 AM EDT documented in this encounter Progress Notes * SHELBI Chavez - 05/05/2023 10:39 AM EDT 33w5d No concerns. Baby moving well. Denies bleeding or LOF. Trace edema of feet/ankles. SHELBI Chavez * Dennise Guzman LPN - 05/05/2023 10:22 AM EDT 33w5d Labor instructions given, wondering about scheduling IOL deliver by 39wks. documented in this encounter Nursing Notes * Whit Velázquez RN - 05/05/2023 10:53 AM EDT Patient seen by [facility] [place] [facility]. Patient denies any questions or concerns. documented in this encounter Plan of Treatment Upcoming Encounters Date Type Specialty Care Team Description 05/19/2023 Office Visit Gynecology Obstetrics Marcy Mendez CRNP [address] [place] [address] Nurse Akash [facility] Return [facility] [address] [place] [address] 05/26/2023 Office Visit Gynecology Obstetrics Osman Muniz MD [address] [place] [address] Nurse Akash [facility] Return [facility] [address] [place] [address] 06/02/2023 Office Visit Gynecology Obstetrics Marcy Mendez CRNP [address] [place] [address] [facility]ust[facility], Non Stress Tests [facility] [address] [place] [address] 06/09/2023 Office Visit Gynecology Obstetrics Marcy Mendez CRNP [address] [place] [address] [facility]ustos, Non Stress Tests [facility] [address] [place] [address] Health Maintenance Due Date Last Done Comments [...]
--- OUTSIDE RECORDS SUMMARY | 2023-06-21 22:05 | External Medical Summary | Summary of Care ---
Author Name Unknown Organization [facility] Address [address] [place] [address] Phone [phone] Care Team Providers Care Diplomatic Interpreter Name Role Phone Unavailable Primary Care Provider Unavailabl e Reason for Visit * Reason Comments Return Visit Non Stress Test Encounter Details Date Type Department Care Team (Late st Contact Info) Description 06/02/2023 10:00 AM EDT Office Visit Gynecology/Obstetric s [facility] [address] [facility] [place] [address] Marcy Mendez CRNP [address] [place] [address] [facility], Non Stress Tests [facility] [address] [place] [address] Multigravida of advanced maternal age in third trimester*; Supervision of high risk in third trimester; Health counseling; COVID-19 affecting , antepartum Allergies No known active allergiesdocumented as of this encounter (statuses as of 06/02/2023) Medications Medication Sig Dispensed Refills Start Date End Date Status 28-0.8 MG Oral Tablet Take by mouth. 0 Active documented as of this encounter (statuses as of 06/02/2023) Active Problems Problem Noted Date Diagnosed Date [...] resolved Need for food assistance referred to [facility] and local food [place] 02/08/2023 Whit [...] or questions 06/02/2023 Whit Velázquez RN 06/02/2023 , supervision, high-risk 12/16/2022 AMA (advanced maternal [...] as of this encounter (statuses as of 06/02/2023) Resolved Problems Problem Noted Date Diagnosed Date [...] as of this encounter (statuses as of 06/02/2023) Immunizations Name Administration Dates Next Due TDAP [...] money to get more. Never true 12/10/2022 [place] Depression Scale Answer Date Recorded [place] Depression Scale Total 1 05/19/2023 The thought [...] Reading Time Taken Comments Blood Pressure 100/70 06/02/2023 10:01 AM EDT Pulse - - Temperature - - Respiratory Rate - - Oxygen Saturation - - Inhaled Oxygen Concentration - - Weight 86.5 kg (190 lb 12.8 oz) 023 10:01 AM EDT Height 162.6 cm (5' 4") 06/02/2023 10:0 1 AM EDT Body Mass Index 32.75 06/02/2023 10:01 AM EDT documented in this encounter Progress Notes * SHELBI Chavez - 06/02/2023 10:14 AM EDT 37w5d No concerns. Baby is active. No contractions or bleeding. ASSESSMENT assessment with Non-stress Test completed on 06/02/2023 at 37.5weeks gestation for indicationof advanced maternal age heart baseline: 130 bpm Variability: Moderate Decelerations: absent Accelerations: present Contractions: None NST start time: 0948 NST stop time: 1023 NST strip reviewed, interpreted, and approved by OB provider, SHELBI Chavez . NST strip stored in clinic storage file documented in this encounter Nursing Notes * Whit Velázquez RN - 06/02/2023 10:23 AM EDT Patient seen by [facility] Proctologist. Patient denies any questions or concerns. have you cut down with your smoking n/a have you quit n/a have you seen a business trainer no have you seen a perinatal social worker no are you receiving counseling no have you received dental care during your no are you enrolled in WIC yes do you receive food stamps or sahu assistance no * Dennise Guzman LPN - 06/02/2023 10:01 AM EDT Pt here for NST/DARIANA, denies any concerns. documented in this encounter Plan of Treatment Upcoming Encounters Date Type Department Care Team (Late st Contact Info) Description 06/09/2023 9:00 AM EDT Office Visit Gynecology/Obstetrics [facility] [address] [place] [address] Marcy Mendez CRNP [address] [place] [address] Akash, Non Stress Tests Carla [address] [place] [address] Health Maintenance Due Date Last Done Comments [...]
--- OUTSIDE RECORDS SUMMARY | 2023-06-21 22:05 | External Medical Summary ---
Author Name Unknown Address Unknown Organization K01:LABOR[facility] - [facility] [address] [facility] [address] Laboratory Report Ordering Provider Test Date Status KAROLINA WAYNE 05/26/2023 08:59:52 Final Observation Date Value Abnormality Reference (Units ) Status Streptococcus agalactiae DNA [Presence] in Specimen by KOBI with probe detection 05/26/2023 08:59:52 Negative Negative Final No Group B Streptococcus det ected by culture-enhanced PCR (amplified probe).
The collection of vaginal/rectal swab specimen combinations (FDA approved specimen type) is optimal for the detection of Group B Streptococcus. Single source collection (vaginal only or rectal only) or alternate specimen sources may lead to false negative results. Performing Location LABOR[facility]ORY [facility] - [address] [facility] [address]
--- OUTSIDE RECORDS SUMMARY | 2023-06-21 22:05 | External Medical Summary | Summary of Care ---
Author Name Unknown Organization [facility] Address [address] [place] [address] Phone [phone] Care Team Providers Care Solar Sales Associate Name Role Phone Unavailable Primary Care Provider Unavailabl e Reason for Visit * Reason Comments Return Visit Encounter Details Date Type Department Care Team Description 05/19/2023 Office Visit Gynecology/Obstetric s [facility] [address] [place] [address] Marcy Mendez CRNP [address] [place] [address] Nurse Akash [facility] Return [facility] [address] [place] [address] Multigravida of advanced maternal age in third trimester*; Supervision of high risk in third trimester; Health counseling; COVID-19 affecting , antepartum Allergies No known active allergiesdocumented as of this encounter (statuses as of 05/19/2023) Medications Medication Sig Dispensed Refills Start Date End Date Status 28-0.8 MG Oral Tablet Take by mouth. 0 Active documented as of this encounter (statuses as of 05/19/2023) Active Problems Problem Noted Date COVID-19 affecting [...] resolved Need for food assistance referred to [facility] and local food [place] 02/08/2023 Whit [...] or questions 05/19/2023 Whit Velázquez RN 05/19/2023 , supervision, high-risk 2022 AMA (advanced maternal [...] as of this encounter (statuses as of 05/19/2023) Resolved Problems Problem Noted Date Resolved Date [...] as of this encounter (statuses as of 05/19/2023) Immunizations Name Administration Dates Next Due TDAP [...] Sign Reading Time Taken Comments Blood Pressure 110/70 05/19/2023 9:36 AM EDT Pulse - - Temperature - - Respiratory Rate - - Oxygen Saturation - - Inhaled Oxygen Concentration - - Weight 86.4 kg (190 lb 6.4 oz) 05/19/2023 9:36 A M EDT Height 162.6 cm (5' 4") 05/19/2023 9:36 AM EDT Body Mass Index 32.68 05/19/2023 9:36 AM EDT documented in this encounter Progress Notes * SHELBI Chavez - 05/19/2023 10:03 AM EDT 35w5d No concerns. Baby moving well. No contractions, bleeding, or LOF. Edema in feet. Discussed IOL, would like to get scheduled. Recommendation is delivery by EDC. SHELBI Chavez * Dennise Guzman LPN - 05/19/2023 9:48 AM EDT 35w5d Pt denies any concerns documented in this encounter Nursing Notes * Whit Velázquez RN - 05/19/2023 9:53 AM EDT Patient seen by [facility] Dental Assistant. Patient denies any questions or concerns. documented in this encounter Plan of Treatment Upcoming Encounters Date Type Specialty Care Team Description 05/26/2023 Office Visit Gynecology Obstetrics Osman Muniz MD [address] [place] [address] Nurse Akash [facility] [address] [place] [address] 06/02/2023 Office Visit Gynecology Obstetrics Marcy Mendez CRNP [address] [place] [address] [facility], Non Stress Tests [facility] [address] [place] [address] 06/09/2023 Office Visit Gynecology Obstetrics Marcy Mendez CRNP [address] [place] [address] [facility], Non Stress Tests [facility] [address] [place] [address] Health Maintenance Due Date Last Done Comments [...]
--- OUTSIDE RECORDS SUMMARY | 2023-06-21 22:05 | External Medical Summary | Summary of Care ---
Author Name Unknown Organization [facility] Address [address] [place] [address] Phone [phone] Care Team Providers Care Supervisor Buffing And Pasting Name Role Phone Unavailable Primary Care Provider Unavailabl e Encounter Details Date Type Department Care Team (Late st Contact Info) Description 06/11/2023 Telephone Gynecology/Obstetrics [facility] [address] [place] [address] Marcy Mendez CRNP [address] [place] [address] Allergies No known active allergiesdocumented as of [...] resolved Need for food assistance referred to [facility] and local food [place] 02/08/2023 [...] money to get more. Never true 12/10/2022 [place] Depression Scale Answer Date Recorded [place] Depression Scale Total 1 05/19/2023 The thought [...] encounter Miscellaneous Notes * Telephone Encounter - Dulce Parsons LPN - 06/11/2023 9:16 AM EDT Patient returned call. Made aware of IOL being bumped to 06/22. She is concerned as she was told she needed to deliver by her ELIZABETH. Advised Dr Chelsie basurtoed moving out her date. * Telephone Encounter - Dennise Guzman LPN [...]
--- OUTSIDE RECORDS SUMMARY | 2023-06-21 22:05 | External Medical Summary | Summary of Care ---
Author Name Unknown Organization [facility] Address [address] [place] [address] Phone [phone] Care Team Providers Care Plant Operations Worker Name Role Phone Unavailable Primary Care Provider Unavailabl e Reason for Visit * Reason Comments Return Visit Encounter Details Date Type Department Care Team Description 05/26/2023 Office Visit Gynecology/Obstetric s Jaden Bustos [address] [facility] [place] [address] Osman Muniz MD [address] [place] [address] Nurse Akash [facility] Return Carla [address] [facility] [place] [address] Multigravida of advanced maternal age in third trimester*; Supervision of high risk in third trimester; Health counseling; COVID-19 affecting , antepartum Allergies No known active allergiesdocumented as of this encounter (statuses as of 05/26/2023) Medications Medication Sig Dispensed Refills Start Date End Date Status 28-0.8 MG Oral Tablet Take by mouth. 0 Active documented as of this encounter (statuses as of 05/26/2023) Active Problems Problem Noted Date COVID-19 affecting [...] resolved Need for food assistance referred to [facility] and local food [place] 02/08/2023 Whit [...] or questions 05/26/2023 Rosa Nguyen RN 05/26/2023 , supervision, high-risk 2022 AMA (advanced maternal [...] as of this encounter (statuses as of 05/26/2023) Resolved Problems Problem Noted Date Resolved Date [...] as of this encounter (statuses as of 05/26/2023) Immunizations Name Administration Dates Next Due TDAP [...] Sign Reading Time Taken Comments Blood Pressure 118/70 05/26/2023 8:43 AM EDT Pulse - - Temperature - - Respiratory Rate - - Oxygen Saturation - - Inhaled Oxygen Concentration - - Weight - - Height 162.6 cm (5' 4") 05/26/2023 8:43 AM EDT Body Mass Index - - documented in this encounter Progress Notes * Osman Muniz MD - 05/26/2023 9:11 AM EDT Pt doing well No complaints RTC 1 week * Isadora Marquez LPN - 05/26/2023 8:43 AM EDT 36w5d Needs gbs today documented in this encounter Plan of Treatment Upcoming Encounters Date Type Specialty Care Team Description 06/02/2023 Office Visit Gynecology Obstetrics Marcy Mendez CRNP [address] [place] [address] Akash, Non Stress Tests Carla [address] [place] [address] 06/09/2023 Office Visit Gynecology Obstetrics Marcy Mendez CRNP [address] [place] [address] Akash, Non Stress Tests Carla [address] [place] [address] Pending Results Name Type Priority Associated Diagnoses Date /Time GROUP B STREP CULTURE/PCR Lab Routine Multigravida of advanced maternal age in third trimester 05/26/2023 8:59 AM EDT Scheduled Orders Name Type Priority Associated Diagnoses Orde r Schedule GROUP B STREP CULTURE/PCR Lab Routine Multigravida of advanced maternal age in third trimester Expected: 05/26/2023, Expires: 05/26/2024 Health Maintenance Due Date Last Done Comments [...]
--- OUTSIDE RECORDS SUMMARY | 2023-06-21 22:05 | External Medical Summary | Summary of Care ---
Author Name Unknown Organization [facility] Address [address] [place] [address] Phone [phone] Care Team Providers Care Early Head Start Teacher Name Role Phone Unavailable Primary Care Provider Unavailabl e Reason for Visit * Reason Comments Return Visit Encounter Details Date Type Department Care Team Description 05/05/2023 Office Visit Gynecology/Obstetric s Noble'alaina Bustos [address] [place] [address] Marcy Mendez CRNP [address] [facility] [place] [address] Nurse Akash [facility] Return Carla [address] [place] [address] Multigravida of advanced maternal age in third [...] resolved Need for food assistance referred to [facility] and local food [place] 02/08/2023 Whit [...] AM EDT Patient seen by [facility] Morning Show Newscast Producer. Patient denies any questions or concerns. documented in this encounter Plan of Treatment Upcoming Encounters Date Type Specialty Care Team Description 05/19/2023 Office Visit Gynecology Obstetrics Marcy Mendez CRNP [address] [place] [address] Nurse Akash [facility] Return Carla [address] [place] [address] 05/26/2023 Office Visit Gynecology Obstetrics Osman Muniz MD [address] [place] [address] Nurse Akash [facility] Return Carla [address] [place] [address] 06/02/2023 Office Visit Gynecology Obstetrics Marcy Mendez CRNP [address] [place] [address] Bustos, Non Stress Tests Carla [address] [place] [address] 06/09/2023 Office Visit Gynecology Obstetrics Marcy Mendez CRNP [address] [place] [address] Bustos, Non Stress Tests Carla [address] [place] [address] Health Maintenance Due Date Last Done Comments [...]
--- OUTSIDE RECORDS SUMMARY | 2023-06-21 22:05 | External Medical Summary | Summary of Care ---
Author Name Unknown Organization [facility] Address [address] [place] [address] Phone [phone] Care Team Providers Care Social Services Specialist Name Role Phone Unavailable Primary Care Provider Unavailabl e Encounter Details Date Type Department Care Team (Late st Contact Info) Description 06/11/2023 Telephone Gynecology/Obstetrics [facility] [address] [place] [address] Marcy Mendez CRNP [address] [place] [address] Allergies No known active allergiesdocumented as of [...] resolved Need for food assistance referred to [facility] and local food [place] 02/08/2023 Whit [...] money to get more. Never true 12/10/2022 Perry Depression Scale Answer Date Recorded Perry Depression Scale Total 1 05/19/2023 The thought [...] Encounter - Dennise Guzman LPN - 06/11/2023 10:15 AM EDT Spoke with pt about IOL being moved, she needs scheduled for weekly NST next week, personal insurance advisor going to get her scheduled and call her with date. documented in this encounter Plan of Treatment Upcoming Encounters Date Type Department Care Team (Late st Contact Info) Description 06/15/2023 3:00 PM EST Office Visit Gynecology/Obstetrics Jaden Bustos [address] [place] [address] Osman Muniz MD [address] [place] [address] María Bustos Stress Tests Carla [address] [place] [address] Health Maintenance Due Date Last Done Comments [...]
--- OUTSIDE RECORDS SUMMARY | 2023-06-21 22:06 | External Medical Summary ---
Author Name Unknown Address Unknown Organization K01:[facility] - [address] [place] [address] Laboratory Report Ordering Provider Test Date Status ARIE ALEJANDRE 04/07/2023 07:53:40 Final Observation Date Value Abnormality Reference (Units ) Status Folic Acid 04/07/2023 07:53:40 >20.0 >4.5 (ng/ mL) Final Performing Location [facility] - [address] [place] [address]
--- OUTSIDE RECORDS SUMMARY | 2023-06-21 22:06 | External Medical Summary | Summary of Care ---
Author Name Unknown Organization [facility] Address [address] [place] [address] Phone [phone] Care Team Providers Care Submarine Cable Equipment Technician Name Role Phone Unavailable Primary Care Provider Unavailabl e Reason for Visit * Reason Comments Outpatient Testing Encounter Details Date Type Department Care Team Description 04/07/2023 Laboratory Laboratory, [facility] [address] [place] [id number] [facility] [address] [place] [address] [employer] Other*[id number]; Supervision of high risk in second trimester; Abnormal glucose tolerance in mother complicating Allergies No known active allergiesdocumented as of this encounter (statuses as of 04/07/2023) Medications Medication Sig Dispensed Refills Start Date End Date Status 28-0.8 MG Oral Tablet Take by mouth. 0 Active documented as of this encounter (statuses as of 04/07/2023) Active Problems Problem Noted Date Abnormal glucose tolerance in mother com plicating 01/11/2023 Overview: Failed early glucola. 3hr GTT ordered Last Assessment & Plan: Early GTT WNL - repeat at 24-28 weeks. Discussed option of GCT versus GTT for this next screening. Instructed her to make sure to carbohydrate load for three days prior to the oral glucose tolerance test. She will fast the evening before the GTT. Health counseling 01/08/2023 Overview: Problem Action Taken Date entered Entered by Date resolved Current needs or questions Patient denies having any current needs or questions 01/08/2023 Whit Velázquez RN 01/08/2023 Problem Action Taken Date entered Entered by Date resolved 2nd trimester edu given 02/08/2023 Whit Velázquez RN 02/08/2023 Problem Action Taken Date entered Entered by Date resolved Need for food assistance referred to [facility] and local food [place] 02/08/2023 Whit Velázquez RN 02/08/2023 Problem Action Taken Date entered Entered by Date resolved Current needs or questions Patient denies having any current needs or questions 03/16/2023 Whit Velázquez RN 03/16/2023 Problem Action Taken Date entered Entered by Date resolved Current needs or questions Patient denies having any current needs or questions 04/07/2023 Whit Velázquez RN 04/07/2023 , supervision, high-risk 2022 AMA (advanced maternal [...] as of this encounter (statuses as of 04/07/2023) Resolved Problems Problem Noted Date Resolved Date Encounter for prescription for nuvaring 03/31/20 16 03/16/2023 documented as of this encounter (statuses as of 04/07/2023) Immunizations Name Administration Dates Next Due TDAP [...] on file documented as of this encounter Plan of Treatment Upcoming Encounters Date Type Specialty Care Team Description 05/05/2023 Office Visit Gynecology Obstetrics Marcy Mendez CRNP [address] [place] [address] Nurse Jeremy Bustos Beginnings Return Carla [address] [place] [address] 05/19/2023 Office Visit Gynecology Obstetrics Marcy Mendez CRNP [address] [place] [address] Nurse Jeremy Bustos Beginnings Return Carla [address] [place] [address] 05/26/2023 Office Visit Gynecology Obstetrics Osman Muniz MD [address] [place] [address] Bustos, Nurse Healthy Beginnings Return Carla [address] [place] [address] 06/02/2023 Office Visit Gynecology Obstetrics Marcy Mendez CRNP [address] [place] [address] Bustos, Non Stress Tests Carla [address] [place] [address] 06/09/2023 Office Visit Gynecology Obstetrics Marcy Mendez CRNP [address] [place] [address] Bustos, Non Stress Tests Carla [address] [place] [address] Pending Results Name Type Priority Associated Diagnoses Date /Time MYCODE SUBSEQUENT ADULT Lab Routine [employer] Other*[id number] 04/07/2023 7:53 AM EDT CBC WITH WBC DIFFERENTIAL AND ANEMIA REFLEX WORKUP Lab Routine Supervision of high risk in second trimester 04/07/2023 7:53 AM EDT SYPHILIS ANTIBODY SCREEN WITH REFLEX TO RPR Lab Routine Supervision of high risk in second trimester 04/07/2023 7:53 AM EDT GESTATIONAL GLUCOSE TOLERANCE, 3 HOUR Lab Routine Abnormal glucose tolerance in mother complicating 04/07/2023 7:53 AM EDT MYCODE SST1 Lab Routine [employer] Other*[id number] 04/07/2023 7:53 AM EDT MYCODE SST2 Lab Routine [employer] Other*[id number] 04/07/2023 7:53 AM EDT ANEMIA CBC Lab Routine Supervision of high risk in second trimester 04/07/2023 7:53 AM EDT DIFFERENTIAL, AUTOMATED Lab Routine Supervision of high risk in second trimester 04/07/2023 7:53 AM EDT ANEMIA REFLEX CHEMISTRY HOLD Lab Routine Supervision of high risk in second trimester 04/07/2023 7:53 AM EDT SYPHILIS ANTIBODY SCREEN Lab Routine Supervision of high risk in second trimester 04/07/2023 7:53 AM EDT 100-G GESTATIONAL GLUCOSE, 2 HOUR Lab Routine Abnormal glucose tolerance in mother complicating 04/07/2023 10:02 AM EDT 100-G GESTATIONAL GLUCOSE, 3 HOUR Lab Routine Abnormal glucose tolerance in mother complicating 04/07/2023 11:01 AM EDT Health Maintenance Due Date Last Done Comments Diabetes Screening 1980 Hepatitis B (1 of 3 - 3-dose series) 1980 Lipid Panel 1980 COVID-19 Vaccine (#1) 03/27/1981 Depression Screening, Annual for Pts 12 and Over 1992 HPV/Co-Test 2010 Mammogram 03/17/2023 03/17/2022 Influenza Vaccine (FLU shot) (#1) 2023 Cervical Cancer Screening 03/11/2025 Pap Smear 03/11/2025 03/11/2022, 03/10, 03/31/2016, Additional history exists DTaP,Tdap,and Td Vaccines (3 - Td or Tdap) 04/07/2033 04/07/2023, 08/09/2006 Hepatitis C Screening Completed 12/10/2022 , 12/10/2022, 12/10/2022 GARDASIL-HPV IMMUNIZATION SERIES Aged Out No longer [...] Not on filedocumented as of this encounter Procedures Procedure Name Priority Date/Time Associated Diagnosis Comments 100-G GESTATIONAL GLUCOSE, 1 HOUR Routine 04/07/2023 9:00 AM EDT Abnormal glucose tolerance in mother complicating 100-G GESTATIONAL GLUCOSE, FASTING Routine 04/07/2023 7:53 AM EDT Abnormal glucose tolerance in mother complicating documented in this encounter Results * (ABNORMAL) 100-G GESTATIONAL GLUCOSE, 1 HOUR (04/07/2023 9:00 AM EDT) 100-g Gestational Glucose, 1 Hour 195(H) 70 - 179 mg/dL 04/07/2023 10:18 AM EDT [facility] [place] [facility] Blood Venous blood specimen / Unknown Venipuncture / Unknown 04/07/2023 9:00 AM EDT 04/07/2023 9:00 AM EDT Valery Julio [facility]IO LAB BLOOD O RDERABLES [facility] [place] [facility] [place] [address] * 100-G GESTATIONAL GLUCOSE, FASTING (04/07/2023 7:53 AM EDT) 100-g Gestational Glucose, Fasting 94 70 - 94 mg/dL 04/07/2023 9:36 AM EDT [facility] [place] [facility] Blood Venous blood specimen / Unknown Venipuncture / Unknown 04/07/2023 7:53 AM EDT 04/07/2023 7:53 AM EDT Narrative [facility] [place] [facility] - 04/07/2023 9:36 AM EDT Based on ACOG guideline, gestational diabetes mellitus is diagnosed when any of the following is met: Fasting is greater than or equal to 95 mg/dL 1 hour is greater than or equal to 180 mg/dL 2 hour is greater than or equal to 155 mg/dL 3 hour is greater than or equal to 140 mg/dL Valery [facility]IO [facility] BLOOD [facility] RDER[facility] [place] [facility] [place] [address] documented in this encounter Visit Diagnoses Diagnosis [employer] Other*[id number] Supervision of high risk in second trimester Unspecified high-risk Abnormal glucose tolerance in mother complicating Abnormal maternal glucose tolerance, complicating , childbirth, or the puerperium, unspecified as to episode of care documented in this encounter
--- OUTSIDE RECORDS SUMMARY | 2023-06-21 22:06 | External Medical Summary ---
Author Name Unknown Address Unknown Organization [id number]:[facility] - [address] [place] [address] Laboratory Report Ordering Provider Test Date Status MAURICE ALEJANDRESILVIA 04/07/2023 10:02:31 Final Observation Date Value Abnormality Reference (Units ) Status Glucose, 2-hr post glucose challenge 04/07/2023 10:02:31 151 70-154 (mg/dL) Final Performing Location [facility] 0 - [address] [place] [address]
--- OUTSIDE RECORDS SUMMARY | 2023-06-21 22:06 | External Medical Summary | Summary of Care ---
Author Name Unknown Organization [facility] Address [address] [place] [address] Phone [phone] Care Team Providers Care Cake Puncher Name Role Phone Unavailable Primary Care Provider Unavailabl e Reason for Visit * Reason Comments Return Visit Encounter Details Date Type Department Care Team Description 04/22/2023 Office Visit Gynecology/Obstetric s Jaden Bustos [address] [facility] [place] [address] Sally White PA-C [address] [facility] [place] [address] Nurse Akash Healthy [facility]nings Return Carla [address] [place] [address] Supervision of high risk in third trimester*; Multigravida of advanced maternal age in third trimester; Health counseling; COVID-19 affecting , antepartum Allergies No known active allergiesdocumented as of this encounter (statuses as of 04/22/2023) Medications Medication Sig Dispensed Refills Start Date End Date Status 28-0.8 MG Oral Tablet Take by mouth. 0 Active documented as of this encounter (statuses as of 04/22/2023) Active Problems Problem Noted Date COVID-19 affecting [...] or questions 04/22/2023 Whit Velázquez RN 04/22/2023 , supervision, high-risk 2022 AMA (advanced maternal [...] as of this encounter (statuses as of 04/22/2023) Resolved Problems Problem Noted Date Resolved Date [...] as of this encounter (statuses as of 04/22/2023) Immunizations Name Administration Dates Next Due TDAP [...] Sign Reading Time Taken Comments Blood Pressure 102/60 04/22/2023 1:13 PM EDT Pulse - - Temperature - - Respiratory Rate - - Oxygen Saturation - - Inhaled Oxygen Concentration - - Weight - - Height 162.6 cm (5' 4") 04/22/2023 1:13 PM EDT Body Mass Index - - documented in this encounter Progress Notes * Dennise Guzman LPN - 04/22/2023 1:17 PM EDT 31w6d Pt wants flu shot this year, would like it a little closer to delivery. Pt wondering when IOL would be set up, delivering @ [facility] * Sally White PA-C - 04/22/2023 1:00 PM EDT 31w6d Found to have hemoglobin 11.8, advised increase iron in diet and ensure contain iron. MFM recommending delivery by EDC, plans [facility] delivery. Reviewed IOL, advised plan for couple days in hospital. Counseled on recommendation for flu vaccine, pt would like to do with next appt. Has upcoming trip to [place], 45 minute flight. DVT precautions, records given ahead of trip. Denies bleeding/leaking/contractions. Affirms FM. RTC in 2 weeks Sally White PA-C documented in this encounter Nursing Notes * Whit Velázquez RN - 04/22/2023 1:32 PM EDT Patient seen by [facility] Concrete Batcher. Patient denies any questions or concerns. documented in this encounter Plan of Treatment Upcoming Encounters Date Type Specialty Care Team Description 05/05/2023 Office Visit Gynecology Obstetrics Marcy Mendez CRNP [address] [place] [address] Nurse Akash Healthy [facility]nings Return Carla [address] [place] [address] 05/19/2023 Office Visit Gynecology Obstetrics Marcy Mendez CRNP [address] [place] [address] Nurse Akash Healthy Beginnings Return Carla [address] [place] [address] 05/26/2023 Office Visit Gynecology Obstetrics Osman Muniz MD [address] [place] [address] Nurse Akash Healthy Beginnings Return Carla [address] [place] [address] 06/02/2023 Office Visit Gynecology Obstetrics Marcy Mendez CRNP [address] [place] [address] Akash, Non Stress Tests Carla [address] [place] [address] 06/09/2023 Office Visit Gynecology Obstetrics Marcy Mendez CRNP [address] [place] [address] Akash, Non Stress Tests Carla [address] [place] [address] Health Maintenance Due Date Last Done Comments [...] as of this encounter Visit Diagnoses Diagnosis Supervision of high risk in third trimester- Primary Unspecified high-risk Multigravida of advanced maternal age in third trimester Health counseling Other specified counseling COVID-19 affecting , antepartum documented in this encounter
--- OUTSIDE RECORDS SUMMARY | 2023-06-21 22:06 | External Medical Summary ---
Author Name Unknown Address Unknown Organization K01:LAB[facility]ATORY [facility] - [address] [facility] [address] Laboratory Report Ordering Provider Test Date Status ARIE ALEJANDRE 04/07/2023 07:53:40 Final Observation Date Value Abnormality Reference (Units ) Status SYNC LEUKOCYTES IN BLOOD BY AUTOMATED COUNT 04/07/2023 07:53:40 9.18 4.00-10.80 (K/uL) Final Segs 04/07/2023 07:53:40 77.7 Above high normal 40.0-75.0 (%) Final Lymphs % 04/07/2023 07:53:40 8.3 Below low normal 18.0-42.0 (%) Final Monos 04/07/2023 07:53:40 9.8 1.0-11.0 (%) Final Eosinophils 04/07/2023 07:53:40 2.5 0.0-6.0 (%) Final Basos 04/07/2023 07:53:40 0.5 0.0-2.0 (%) Final Immature Granulocyte, Percent 04/07/2023 07:53:40 1.2 0.0-2.0 (%) Final Absolute Segs 04/07/2023 07:53:40 7.13 1.80-7.70 (K/uL) Final Lymphs, absolute 04/07/2023 07:53:40 0.76 Below low normal 1.00-4.80 (K/ul) Final Monos, Abs 04/07/2023 07:53:40 0.90 0.00-1.10 (K/uL) Final Eos, Abs 04/07/2023 07:53:40 0.23 0.00-0.70 (K/uL) Final Basos, Abs 04/07/2023 07:53:40 0.05 0.00-0.20 (K/uL) Final Immature Granulocytes, Number 04/07/2023 07:53:40 0.11 0.00-0.20 (K/uL) Final Performing Location LABORATORY [facility] - [facility] [place] [address]
--- OUTSIDE RECORDS SUMMARY | 2023-06-21 22:06 | External Medical Summary ---
Author Name Unknown Address Unknown Organization K01:[facility] [address] Laboratory Report Ordering Provider Test Date Status ARIE ALEJANDRE 04/07/2023 07:53:40 Final Observation Date Value Abnormality Reference (Units ) Status Retic, % (auto) 04/07/2023 07:53:40 2.24 Above high normal 0.80-1.90 (%) Final Reticulocytes, Absolute 04/07/2023 07:53:40 84.7 31.3-100.1 (K/uL) Final Reticulocyte fraction, immature 04/07/2023 07:53:40 27.7 Above high normal 2.5-20.6 (%) Final Reticulocyte HGB 04/07/2023 07:53:40 32.5 29.7-37.4 (pg) Final Performing Location [facility] - [address] [facility] [address]
--- OUTSIDE RECORDS SUMMARY | 2023-06-21 22:06 | External Medical Summary | Summary of Care ---
Author Name Unknown Organization [facility] Address [address] [place] [address] Phone [phone] Care Team Providers Care Rn Transition Name Role Phone Unavailable Primary Care Provider Unavailabl e Reason for Visit * Reason Comments Return Visit Encounter Details Date Type Department Care Team Description 04/22/2023 Office Visit Gynecology/Obstetric s Jaden Bustos [address] [facility] [place] [address] Sally White PA-C [address] [facility] [place] [address] Nurse Akash [facility] Return Carla [address] [place] [address] Supervision of high risk in third trimester*; [...] resolved Need for food assistance referred to [facility] and local food [employer] 02/08/2023 Whit Velázquez [...] IOL would be set up, delivering @ [facility] * Sally White PA-C - 04/22/2023 1:00 PM EDT 31w6d Found to have hemoglobin 11.8, advised increase iron in diet and ensure contain iron. MFM recommending delivery by [facility], plans [facility] delivery. Reviewed IOL, advised plan for couple days in hospital. Counseled on recommendation for flu vaccine, pt would like to do with next appt. Has upcoming trip to [place], 45 minute flight. DVT precautions, records given ahead of trip. Denies bleeding/leaking/contractions. Affirms FM. RTC in 2 weeks Sally White PA-C documented in this encounter Nursing Notes * Whit Velázquez RN - 04/22/2023 1:32 PM EDT Patient seen by [facility] Federal Appellate Law Clerk. Patient denies any questions or concerns. documented in this encounter Plan of Treatment Upcoming Encounters Date Type Specialty Care Team Description 05/05/2023 Office Visit Gynecology Obstetrics Marcy Mendez CRNP [address] [place] [address] Nurse Akash [facility] Return Carla [address] [place] [address] 05/19/2023 Office Visit Gynecology Obstetrics Marcy Mendez CRNP [address] [place] [address] Nurse Akash [facility] Return Carla [address] [place] [address] 05/26/2023 Office Visit Gynecology Obstetrics Osman Muniz MD [address] [place] [address] Nurse Akash [facility] Return Carla [address] [place] [address] 06/02/2023 Office Visit Gynecology Obstetrics Marcy Mendez CRNP [address] [place] [address] Akash, Non Stress Tests Carla [address] [place] [address] 06/09/2023 Office Visit Gynecology Obstetrics Marcy Mendez CRNP [address] [place] [address] Akash, Non Stress Tests Carla [address] [place] [address] Health Maintenance Due Date Last Done Comments [...]
--- OUTSIDE RECORDS SUMMARY | 2023-06-21 22:06 | External Medical Summary ---
Author Name Unknown Address Unknown Organization [id number]:LABORATORY [facility] [place] - [facility] [address] [place] [address] Laboratory Report Ordering Provider Test Date Status PILIARIE 04/07/2023 07:53:40 Final Observation Date Value Abnormality Reference (Units ) Status Creatinine 04/07/2023 07:53:40 0.5 0.5-1.0 (mg/dL) Final Glomerular filtration rate/1.73 sq M.predicted [Volume Rate/Area] in Serum, Plasma or Blood by Creatinine-based formula (CKD-EPI) 04/07/2023 07:53:40 >90 >=60 (mL/min) Final eGFR is calculated based on the CKD-EPI 2020 equation Performing Location LABORATORY [facility] - [address] [place] [address]
--- OUTSIDE RECORDS SUMMARY | 2023-06-21 22:06 | External Medical Summary ---
Author Name Unknown Address Unknown Organization [id number]:LABORATORY [facility] [place] - [address] [place] [address] [place] [address] Laboratory Report Ordering Provider Test Date Status ARIE ALEJANDRE 04/07/2023 07:53:40 Final Observation Date Value Abnormality Reference (Units ) Status Vitamin B12 04/07/2023 07:53:40 080 013-6315 (pg/mL) Final Performing Location [facility] - [address] [place] [address]
--- OUTSIDE RECORDS SUMMARY | 2023-06-21 22:06 | External Medical Summary ---
Author Name Unknown Address Unknown Organization [id number]:LABORATORY [facility] [place] - [address] [place] [address] [place] [address] Laboratory Report Ordering Provider Test Date Status PILI,BACKER 04/07/2023 07:53:40 Final Observation Date Value Abnormality Reference (Units ) Status WBC, Total 04/07/2023 07:53:40 9.18 4.00-10.8 0 (K/uL) Final RBC 04/07/2023 07:53:40 3.85 3.85-5.15 (M/uL) Final Hemoglobin 04/07/2023 07:53:40 11.8 Below low normal 12 .0-15.3 (g/dL) Final Anemia reflex testing trigge rs on a HGB < 12.0 for Females and HGB < 13.0 for Males in accordance with the WHO Anemia Guidelines
Anemia reflex testing triggers on a HGB < 12.0 for Females and HGB < 13.0 for Males in accordance with the WHO Anemia Guidelines HCT 04/07/2023 07:53:40 36.2 36.0-45.2 (%) Final MCV 04/07/2023 07:53:40 94.0 81.5-97.5 (fL) Final MCH 04/07/2023 07:53:40 30.6 27.0-34.0 (pg) Final MCHC 04/07/2023 07:53:40 32.6 32.0-36.0 (g/dL) Final RDW 04/07/2023 07:53:40 12.8 11.5-15.5 (%) Final Platelets 04/07/2023 07:53:40 268 140-400 (K /uL) Final MPV 04/07/2023 07:53:40 10.7 6.6-11.1 ( fL) Final Nucleated erythrocytes/100 leukocytes [Ratio] in Blood by Automated count 04/07/2023 07:53:40 0 <=0 (/100 WBCs) Fi [facility] Performing Location LAB[facility]ATORY [facility] - [address] [facility] [address]
--- OUTSIDE RECORDS SUMMARY | 2023-06-21 22:06 | External Medical Summary ---
Author Name Unknown Address Unknown Organization [id number]:LABORATORY [place] [facility] - [address] [place] [address] Laboratory Report Ordering Provider Test Date Status ARIE ALEJANDRE 04/07/2023 07:53:40 Final Based on ACOG guideline, ges tational diabetes mellitus is diagnosed when any of the following is met:
Fasting is greater than or equal to 95 mg/dL
1 hour is greater than or equal to 180 mg/dL
2 hour is greater than or equal to 155 mg/dL
3 hour is greater than or equal to 140 mg/dL Observation Date Value Abnormality Reference (Units ) Status Glucose, fasting 04/07/2023 07:53:40 94 70- 94 (mg/dL) Final Performing Location LABORATORY [facility] [place] [facility] 0 - [address] [place] [address]
--- OUTSIDE RECORDS SUMMARY | 2023-06-21 22:06 | External Medical Summary ---
Author Name Unknown Address Unknown Organization [id number]:LABORATORY [facility] - [address] [place] [address] Laboratory Report Ordering Provider Test Date Status PILIARIE 04/07/2023 09:00:45 Final Observation Date Value Abnormality Reference (Units ) Status Glucose [Mass/volume] in Serum or Plasma --1 hour post dose glucose 04/07/2023 09:00:45 195 Above high normal 70-179 (mg/dL) Final Performing Location LABORATORY [facility] 57[address] 0 - [address] [place] [address]
--- OUTSIDE RECORDS SUMMARY | 2023-06-21 22:06 | External Medical Summary ---
Author Name Unknown Address Unknown Organization K01:LABORATORY [facility] [place] - [address] [facility] [address] Laboratory Report Ordering Provider Test Date Status ARIE ALEJANDRE 04/07/2023 07:53:40 Final Observation Date Value Abnormality Reference (Units ) Status Treponema pallidum Ab [Presence] in Serum by Immunoassay 04/07/2023 07:53:40 Nonreactive Nonreactive Final No serologic evidence of syp hilis. No additional testing clinicially indicated at this time. Consider repeat testing in 2-4 weeks if acute or primary syphilis is suspected. Performing Location LABORATORY C - [address] [facility] [address]
--- OUTSIDE RECORDS SUMMARY | 2023-06-21 22:06 | External Medical Summary | Summary of Care ---
Author Name Unknown Organization [facility] Address [address] [facility] [place] [address] Phone [phone] Care Team Providers Care Manager Plumbing Name Role Phone Unavailable Primary Care Provider Unavailabl e Reason for Visit * Reason Onset Date Comments Advice 04/07/2023 Encounter Details Date Type Department Care Team Description 04/07/2023 Telephone Gynecology/Obstetrics [facility] [address] [place] [address] Backer, SHELBI Mcdowell [address] [place] [address] Advice Allergies No known active allergiesdocumented as of this encounter (statuses as of 04/07/2023) Medications Medication Sig Dispensed Refills Start Date End Date Status 28-0.8 MG Oral Tablet Take by mouth. 0 Active documented as of this encounter (statuses as of 04/07/2023) Active Problems Problem Noted Date COVID-19 affecting [...] resolved Need for food assistance referred to [facility] and local food [place] 02/08/2023 [...] encounter Miscellaneous Notes * Telephone Encounter - Daphney Santamaria LPN - 04/07/2023 1:46 PM EDT Medications safe to take for illness in as listed in the Next Nine Months book are: Sudafed, Dimetapp,Chlortimeton,Tylenol Cold and Sinus, Breathe Right Strips, [place] Nasal Anthony, and Benadryl. For a cough:Plain Robitusin, Vicks Vapor-Rub,Delsym, Cepacol lozenges or Chloraseptic spray.Tylenol may be taken for minor aches and pains, do not exceed 1000mg in 4 hours. Reviewed she should treat symptoms as they come up. Do good kick counts. Report to the ER if any shortness of breath or chest pain. Touch base with PCP. * Telephone Encounter - KATE Ling - 04/07/2023 1:36 PM EDT Pt seen this AM Tested + Covid Looking for advice 30 wks .cough so far.Please assist. Attempted Warm transfer. Thank you documented in this encounter Plan of Treatment Upcoming Encounters Date Type Specialty Care Team Description 04/22/2023 Office Visit Gynecology Obstetrics Sally White PA-C [address] [place] [address] Nurse Akash [facility] Return Carla [address] [place] [address] 05/05/2023 Office Visit Gynecology Obstetrics Marcy Mendez CRNP [address] [place] [address] Nurse Akash [facility] Return Carla [address] [place] [address] 05/19/2023 Office Visit Gynecology Obstetrics Marcy Mendez CRNP [address] [place] [address] Nurse Akash [facility] Return Carla [address] [place] [address] 05/26/2023 Office Visit Gynecology Obstetrics Osman Muniz MD [address] [place] [address] Nurse Akash [facility] Return Carla [address] [place] [address] 06/02/2023 Office Visit Gynecology Obstetrics Marcy Mendez CRNP [address] [place] [address] Bustos, Non Stress Tests Carla [address] [place] [address] 06/09/2023 Office Visit Gynecology Obstetrics Marcy Mendez CRNP [address] [place] [address] Bustos, Non Stress Tests Carla [address] [place] [address] Health Maintenance Due Date Last Done Comments [...]
--- OUTSIDE RECORDS SUMMARY | 2023-06-21 22:06 | External Medical Summary ---
Author Name Unknown Address Unknown Organization K01:[facility] [address] [facility] [address] Laboratory Report Ordering Provider Test Date Status ARIE ALEJANDRE 04/07/2023 07:53:40 Final Observation Date Value Abnormality Reference (Units ) Status Ferritin 04/07/2023 07:53:40 19 13-150 (ng /mL) Final Postmenopausal women have hi gher ferritin levels than pre-menopausal women. The above reference interval is based on pre-menopausal women. Performing Location [facility] - [address] [facility] [address]
--- OUTSIDE RECORDS SUMMARY | 2023-06-21 22:06 | External Medical Summary | Summary of Care ---
Author Name Unknown Organization [facility] Address [address] [place] [address] Phone [phone] Care Team Providers Care Head Teller Name Role Phone Unavailable Primary Care Provider Unavailabl e Reason for Visit * Reason Comments Return Visit Encounter Details Date Type Department Care Team Description 04/07/2023 Office Visit Gynecology/Obstetric s Jaden Bustos [address] [place] [address] Valery Tobias CRNP [address] [place] [address] Nurse Akash [facility] Return Carla [address] [address] Supervision of high risk in third trimester*; Abnormal glucose tolerance in mother complicating ; Multigravida of advanced maternal age in third trimester; Health counseling; Need for prophylactic vaccination with combined ixmjgcfagj-ugqbywm-yy rtussis (DTP) vaccine Allergies No known active allergiesdocumented as of [...] resolved Need for food assistance referred to [facility] and local [employer] 02/08/2023 Whit Velázquez RN 02/08/2023 Problem Action [...] Sign Reading Time Taken Comments Blood Pressure 118/68 04/07/2023 8:20 AM EDT Pulse - - Temperature - - Respiratory Rate - - Oxygen Saturation - - Inhaled Oxygen Concentration - - Weight 83.9 kg (185 lb) 04/07/2023 8:20 AM EDT Height - - Body Mass Index 31.76 02/08/2023 11:30 AM EDT documented in this encounter Progress Notes * SHELBI Powell - 04/07/2023 8:28 AM EDT 29w 5d Doing well. Completing 3 hr GTT, Tdap today. Baby is active. No ctx/bleeding/leaking. Had recent growth scan with MFM. Ordered a breast pump. Interested in Nuva Ring PP - recommend progesterone-only options for first 6mos of . Willing to try POPs. 2 week return SHELBI Morin * Cesia Salazar LPN - 04/07/2023 8:21 AM EDT 29w5d Denies vaginal bleeding/rom + movement Gtt today Tdap today documented in this encounter Nursing Notes * Cesia Salazar LPN - 04/07/2023 8:38 AM EDT Patient here for tdap injection. Patient doing well no complaints. Injection given IM as ordered. Patient tolerated well. Patient to follow up as directed. Patient instructed to call if any complications. Patient verbalized understanding of instructions given. Injection site: Right Deltoid Medication Source: Dispensed stock medication * Whit Velázquez RN - 04/07/2023 8:30 AM EDT Patient seen by [facility] Construction Checker. Patient denies any questions or concerns. Whit Velázquez, RN documented in this encounter Plan of Treatment Upcoming Encounters Date Type Specialty Care Team Description 05/05/2023 Office Visit Gynecology Obstetrics Marcy Mendez CRNP [address] [place] [address] Nurse Jeremy Bustos Return Carla [address] [place] [address] 05/19/2023 Office Visit Gynecology Obstetrics Marcy Mendez CRNP [address] [place] [address] Bustos, Nurse [facility] Return Carla [address] [place] [address] 05/26/2023 Office Visit Gynecology Obstetrics Osman Muniz MD [address] [place] [address] Nurse Akash [facility] Return Carla [address] [place] [address] 06/02/2023 Office Visit Gynecology Obstetrics Marcy Mendez CRNP [address] [place] [address] Akash Non Stress Tests Carla [address] [place] [address] 06/09/2023 Office Visit Gynecology Obstetrics Marcy Mendez CRNP [address] [place] [address] Akash Non Stress Tests Carla [address] [place] [address] Health Maintenance Due Date Last Done Comments [...] risk in third trimester- Primary Unspecified high-risk Abnormal glucose tolerance in mother complicating Abnormal maternal glucose tolerance, complicating , childbirth, or the puerperium, unspecified as to episode of care Multigravida of advanced maternal age in third trimester Health counseling Other specified counseling Need for prophylactic vaccination with combined xvetbyolcz-ohyrpzh-jwbwsboyd (DTP) vaccine documented in this encounter
--- OUTSIDE RECORDS SUMMARY | 2023-06-21 22:06 | External Medical Summary ---
Author Name Unknown Address Unknown Organization K01:LAB[facility]ATORY [facility] - [address] [place] [address] Laboratory Report Ordering Provider Test Date Status ARIE ALEJANDRE 04/07/2023 07:53:40 Final Observation Date Value Abnormality Reference (Units ) Status Iron 04/07/2023 07:53:40 188 Above high normal 33-151 (ug/dL) Final Iron-binding capacity 04/07/2023 07:53:40 480 Above high normal 250-425 (ug/dL) Final Transferrin Sat % 04/07/2023 07:53:40 39 15-55 (%) Final Performing Location LABORATORY [facility] - [address] [place] [address]
--- OUTSIDE RECORDS SUMMARY | 2023-06-21 22:06 | External Medical Summary ---
Author Name Unknown Address Unknown Organization K01:LABORATORY [facility] [place] - [address] [facility] [address] Laboratory Report Ordering Provider Test Date Status MARY JO MORAN 04/07/2023 07:53:40 Final Observation Date Value Abnormality Reference (Units ) Status MYCODE SPECIMEN-SST 04/07/2023 07:53:40 Freezing of extracted DNA, whole blood and/or serum. Final Performing Location LABORATORY [facility] - [address] [facility] [address]
--- OUTSIDE RECORDS SUMMARY | 2023-06-21 22:06 | External Medical Summary ---
Author Name Unknown Address Unknown Organization K0G:LABORATORY [place] [facility] - [address] [place] [address] Laboratory Report Ordering Provider Test Date Status ARIE ALEJANDRE 04/07/2023 11:01:55 Final Observation Date Value Abnormality Reference (Units ) Status Glucose [Mass/volume] in Serum or Plasma --3 hours post dose glucose 04/07/2023 11:01:55 112 70-139 (mg/dL) Final Performing Location LABORATORY [place] [facility] 0 - [address] [place] [address]
--- OUTSIDE RECORDS SUMMARY | 2023-06-21 22:06 | External Medical Summary ---
Author Name Unknown Address Unknown Organization K01:[facility]ORY [facility] [place] [address] [facility] [address] Laboratory Report Ordering Provider Test Date Status MARY JO MORAN 04/07/2023 07:53:40 Final Observation Date Value Abnormality Reference (Units ) Status MYCODE SPECIMEN-SST 04/07/2023 07:53:40 Freezing of extracted DNA, whole blood and/or serum. Final Performing Location LABORATORY [facility] - [address] [facility] [address]
--- OUTSIDE RECORDS SUMMARY | 2023-06-21 22:07 | External Medical Summary ---
Author Name Unknown Address Unknown Organization K01:[facility]ORY [facility] - [address] [facility] [address] Laboratory Report Ordering Provider Test Date Status MARY JO MORAN 01/13/2023 08:11:42 Final Observation Date Value Abnormality Reference (Units ) Status MYCODE SPECIMEN-SST 01/13/2023 08:11:42 Freezing of extracted DNA, whole blood and/or serum. Final Performing Location LABORATORY [facility] - [address] [facility] [address]
--- OUTSIDE RECORDS SUMMARY | 2023-06-21 22:07 | External Medical Summary ---
Author Name Unknown Address Unknown Organization [facility] [address] [place] [address] Laboratory Report Ordering Provider Test Date Status YUKI VILLANUEVA 01/08/2023 13:28:15 Final Observation Date Value Abnormality Reference (Units ) Status Glucose [Moles/volume] in Serum or Plasma --1 hour post 50 g glucose PO 01/08/2023 13:28:15 139 Above high normal 70-129 (mg/dL) Final Performing Location LABORATORY [facility] [place] 57[address] 0 - [address] [place] [address]
--- OUTSIDE RECORDS SUMMARY | 2023-06-21 22:07 | External Medical Summary ---
Author Name Unknown Address Unknown Organization K01:[facility] [place] [address] [place] [address] Laboratory Report Ordering Provider Test Date Status СЕРГЕЙ RIDDLE 01/08/2023 12:21:39 Final Normal: <150 mg/ g creatinine
High: 150-500 mg/g creatinine
Very High: >500 mg/g creatinine
Nephrotic: >3000 mg/g creatinine Observation Date Value Abnormality Reference (Units ) Status Protein/Creatinine [Ratio] in Urine 01/08/2023 12:21:39 120 <150 (mg/g ) Final Protein, Urine 01/08/2023 12:21:39 6 (mg/dL) Final Creatinine, Urine 01/08/2023 12:21:39 50 (mg/dL) Final Performing Location [facility] - [address] [place] [address]
--- OUTSIDE RECORDS SUMMARY | 2023-06-21 22:07 | External Medical Summary | Summary of Care ---
Author Name Unknown Organization [facility] Address [address] [place] [address] Phone [phone] Care Team Providers Care Health Care Facility Administrator Name Role Phone Unavailable Primary Care Provider Unavailabl e Reason for Visit * Reason Comments Ultrasound Encounter Details Date Type Department Care Team Description 01/22/2023 Office Visit Steel Construction Worker Obstetrics Maternal Medicine, [place] [address], [place] [id number] Anali Beebe MD [address] [place] [address] Multigravida of advanced maternal age in second trimester*; Abnormal glucose tolerance in mother complicating Allergies No known active allergiesdocumented as of this encounter (statuses as of 01/22/2023) Medications Medication Sig Dispensed Refills Start Date End Date Status 28-0.8 MG Oral Tablet Take by mouth. 0 Active documented as of this encounter (statuses as of 01/22/2023) Active Problems Problem Noted Date Abnormal glucose [...] or questions 01/08/2023 Whit Velázquez RN 01/08/2023 Supervision of high risk in rst trimester 12/16/2022 AMA (advanced maternal age) multigravida 35+ 12/10/2022 Overview: Patient age 42 at time of delivery. NIPT: pending Genetics referral: desires, referral placed MFM limited anatomy scan scheduled 12/15/2022 (normal for gestational age) MFM anatomy scan scheduled 01/22/2023 Last Assessment & Plan: QNatal low risk - reviewed by me Encounter for prescription for nuvaring 03/31/2016 Angioedema 04/13/2012 Overview: started 12/2011 Family history of hyperlipidemia 012 Estimated Date of Delivery Comme nts Yes 06/18/2023 Based on Ultraso und documented as of this encounter (statuses as of 01/22/2023) Immunizations Name Administration Dates Next Due TDAP (age 11 and older)(Adacel) 08/09/2006 documented [...] on file documented as of this encounter Progress Notes * Anali Beebe MD - 01/22/2023 2:37 PM EDT MATERNAL MEDICINE VISIT. Elsi Riojas is at 19w0d who presents to [facility] for an ultrasound and follow-up of her high risk . After connecting through [employer], patient was verified with two unique identifiers. Patient (or authorized legal pharmaceutical specialty representative) was then informed that this was a Telemedicine visit and that the exam was being conducted confidentially over secure lines. My office door was closed. No one else was in the room with me. Patient acknowledged consent and understanding of privacy and security of the Telemedicine visit, and gave permission to have a telemedicine presenter stay in the room in order toassist with the history and to conduct the exam as needed. I informed the patient that I have reviewed their record in [employer] and presented the opportunity for them to ask any questions regarding the visit today. The patient agreed to participate. REVIEW OF SYSTEMS: reports movement: yes, sometimes abdominal pain/tenderness/cramping/contractions: no vaginal bleeding: no vaginal leaking of fluid: no PHYSICAL EXAM: Constitutional: pleasant, well-developed, well nourished General: pleasant, alert and oriented Neuro: mood and affect normal, alert and oriented, no acute distress Current Medications - Prior to This Encounter Medication Sig Last Dose Discont. 28-0.8 MG Oral Tablet Take by mouth. She is being seen today by Maternal- Medicine for the following reasons: Problem List Items Addressed This Visit AMA (advanced maternal age) multigravida 35+ - Primary QNatal low risk - reviewed by me Abnormal glucose tolerance in mother complicating Early GTT WNL - repeat at 24-28 weeks. Discussed option of GCT versus GTT for this next screening. Instructed her to make sure to carbohydrate load for three days prior to the oral glucose tolerancetest. She will fast the evening before the GTT. We reviewed today's ultrasound findings. (For full report, please refer to ultrasound report provided separately). Ms. Riojas's questions were answered to her satisfaction. Ms. Riojas was instructed to notify her primary education associate if she felt regular contractions (approximately every 10 mins), leaking of fluid, vaginal bleeding or if movement decreased. movement assessment reviewed. RECOMMENDATIONS: She will return in 9 weeks for growth assessment secondary to AMA. Thank you for allowing us to participate in the care of this patient. Please call with any questions. Anali Beebe MD 01/22/2023 2:37 PM I spent a total of 10-19 minutes (exact time 15 mins) on the date of service in preparation, delivery, and documentation of the care provided to Elsi Riojas excluding any time spent in the performance of separately billed services. documented in this encounter Miscellaneous Notes * Assessment & Plan Note - Anali Beebe MD - 01/22/2023 2:36 PM EDT Associated Problem(s): Abnormal glucose tolerance in mother complicating Early GTT WNL - repeat at 24-28 weeks. Discussed option of GCT versus GTT for this next screening. Instructed her to make sure to carbohydrate load for three days prior to the oral glucose tolerancetest. She will fast the evening before the GTT. * Assessment & Plan Note - Anali Beebe MD - 01/22/2023 2:36 PM EDT Associated Problem(s): AMA (advanced maternal age) multigravida 35+ QNatal low risk - reviewed by me documented in this encounter Plan of Treatment Upcoming Encounters Date Type Specialty Care Team Description 02/08/2023 Office Visit Gynecology Obstetrics Sally White PA-C [address] [place] [address] Nurse Akash [facility] Return Carla [address] [place] [address] 03/25/2023 Imaging Radiology Scheduled Orders Name Type Priority Associated Diagnoses Orde r Schedule MFM US PREG FOLLOW UP EACH FETUS Medical Imaging Routine Multigravida of advanced maternal age in second trimester Abnormal glucose tolerance in mother complicating 9 Occurrences starting 01/22/2023 until 07/24/2023 Health Maintenance Due Date Last Done Comments Diabetes Screening 1980 Hepatitis B (1 of 3 - 3-dose series) 1980 Lipid Panel 1980 COVID-19 Vaccine (#1) 03/27/1981 Depression Screening, Annual for Pts 12 and Over 1992 DTaP,Tdap,and Td Vaccines (2 - Td or Tdap) 08/09/2016 08/09/2006 Mammogram 03/17/2023 03/17/2022 Influenza Vaccine (FLU shot) (Season Ended) 2023 Pap Smear 03/11/2027 03/11/2022, 03/10, 03/31/2016, Additional history exists Hepatitis C Screening Completed 12/10/2022 , 12/10/2022, [...] Diagnosis Multigravida of advanced maternal age in second trimester- Primary Abnormal glucose tolerance in mother complicating Abnormal maternal glucose tolerance, complicating , childbirth, or the puerperium, unspecified as to episode of care documented in this encounter
--- OUTSIDE RECORDS SUMMARY | 2023-06-21 22:07 | External Medical Summary ---
Author Name Unknown Address Unknown Organization : Laboratory Report Ordering Provider Test Date Status СЕРГЕЙ RIDDLE 01/08/2023 13:28:15 Final Observation Date Value Abnormality Reference (Units ) Status INTERPRETATION 01/08/2023 13:28:15 SEE BELOW Final Screen negative for open NTD RISK FOR ONTD 01/08/2023 13:28:15 <1:5000 Final CALC'D GESTATIONAL AGE 0601/08/2023 13:28:15 17 Final AFP, SERUM 01/08/2023 13:28:15 46.0 (ng/mL) Final AFP MOM 01/08/2023 13:28:15 1.27 Final Reference Range:
NTD <2 .50
IDD <1.90
TWINS <4.00
TWINS IDD <3.50
TRIPLETS <4.50
The AFP test result indicates that this patient is
screen negative for open NTD. It should be noted
that normal test results can never guarantee the
of a normal baby and that 2-3% of newborns
have some type of physical or mental defect, many
of which are undetectable through any known
diagnostic technique.
This is a screening test, not a diagnostic test.
This risk assessment report is based in part on
demographic data provided by the ordering
physician. Please notify the laboratory promptly
if any data are incorrect. For assistance with
recalculations, please call your local [facility] laboratory. For assistance with
interpretation of these results, please contact
your Local [facility] genetic counselor or
call [phone] ([phone]).
Interpretive Cutoffs
Screen Positive for Open NTD:
> or = 2.50 adjusted MOM
> or = 1.90 adjusted MOM for insulin- dependent diabetics
> or = 4.00 adjusted MOM for twins
> or = 3.50 adjusted MOM for twins insulin-dependent diabetics
> or = 4.50 adjusted MOM for triplets
For additional information, please refer to
[email or web address]
(This link is being provided for
informational/educational purposes only.) DATE OF 01/08/2023 13:28:15 1980 Final COLLECTION DATE 01/08/2023 13:28:15 01/08/2023 Final MATERNAL WEIGHT 01/08/2023 13:28:15 166 (lbs ) Final EST'D DATE OF DELIVERY 01/08/2023 13:28:15 06/18/2023 Final ELIZABETH DETERMINED BY 01/08/2023 13:28:15 LMP Final MOTHER'S ETHNIC ORIGIN 01/08/2023 13:28:15 WHITE Final NUMBER OF FETUSES 01/08/2023 13:28:15 1 Final INSULIN DEPEND DIABETIC 01/08/2023 13:28:15 NO Final REPEAT SPECIMEN 01/08/2023 13:28:15 NO Final HX OF NEURAL TUBE DEFECTS 01/08/2023 13:28:15 NO Final PREV DOWN SYND 01/08/2023 13:28:15 NO Final DONOR EGG 01/08/2023 13:28:15 NO Final DONOR AGE: EGG RETRIEVAL 01/08/2023 13:28:15 NOT GIVEN Final Test performed by [facility]
[address],
[place] [address]

Manager Motor: Ksenia Valenzuela MD,PHD,SHERRIE
Test Reported by Aron Trevioñ,
[facility],
[address] [place], [place]
Nikhil Gamboa M.D., Ph.D., Director of Laboratories
, [facility] [id number] Performing Location
--- OUTSIDE RECORDS SUMMARY | 2023-06-21 22:07 | External Medical Summary | Summary of Care ---
Author Name Unknown Organization [facility] Address [address] [place] [address] Phone [phone] Care Team Providers Care Logistics Supervisor Name Role Phone Unavailable Primary Care Provider Unavailabl e Reason for Visit * Reason Onset Date Comments Test Results 12/21/2022 QNATAL Result Encounter Details Date Type Department Care Team Description 12/21/2022 Telephone Card Lacer Obstetrics Maternal Medicine, [place] [address] [place] [address] Rema Acosta CHRA Test Results (QNATAL Result) Allergies No known active allergiesdocumented as of this encounter (statuses as of 12/21/2022) Medications Medication Sig Dispensed Refills Start Date End Date Status 28-0.8 MG Oral Tablet Take by mouth. 0 Active documented as of this encounter (statuses as of 12/21/2022) Active Problems Problem Noted Date Supervision of high risk in fi rst trimester 12/16/2022 AMA (advanced maternal age) multigravida 35+ 12/10/2022 Overview: Patient age 42 at time of delivery. NIPT: pending Genetics referral: desires, referral placed MFM limited anatomy scan scheduled 12/15/2022 (normal for gestational age) MFM anatomy scan scheduled 01/22/2023 Last Assessment & Plan: CONSIDERATIONS: We reviewed the most pertinent aspects of the following: Advanced maternal age (AMA) refers to a woman with a springer who will be at the age of 35 or older at the estimated time of delivery and may be associated with increased morbidity. Patient has completed the Qnatal and results are pending. Limited anatomy scan on 12/15/2022 was normal for gestational age. In addition to the risk of chromosomal abnormalities, there is an increased risk of congenital/structural anomalies. RECOMMENDATIONS: Recommend MFM anatomy ultrasound at 19-20 weeks gestation. As patient is greater than 40 at ELIZABETH: o Recommend ultrasound for growth 28-30 weeks gestation. o Recommend surveillance with weekly NST at 38 weeks. o Recommend delivery by EDC. Encounter for prescription for nuvaring 03/31/2016 Angioedema 04/13/2012 Overview: started 12/2011 Family history of hyperlipidemia 012 Estimated Date of Delivery Comme nts Yes 06/18/2023 Based on Ultraso und documented as of this encounter (statuses as of 12/21/2022) Immunizations Name Administration Dates Next Due TDAP [...] encounter Miscellaneous Notes * Telephone Encounter - Rema JOSEP Callahan - 12/21/2022 9:53 AM EDT Cell-free DNA genetic screening results came back LOW RISK. Informed patient that based on this screening test, the is not at high risk for trisomy 21, 18, 13, and sex chromosome abnormalities. Patient is aware of Female sex of the fetus. JOSEP Hernandez Genetic Counseling Loss Prevention Auditor Maternal Medicine For further questions call the Genetic Counselor at . documented in this encounter Plan of Treatment Upcoming Encounters Date Type Specialty Care Team Description 01/08/2023 Office Visit Gynecology Obstetrics Sally White PA-C [address] [place] [address] Nurse Akash [facility] Return Carla [address] [place] [address] 01/22/2023 Office Visit Maternal Medicine Anali Beebe MD [address] [place] [address] 01/22/2023 Imaging Radiology Health Maintenance Due Date Last Done Comments [...] history exists Hepatitis C Screening Completed 12/10/2022 GARDASIL-HPV IMMUNIZATION SERIES Aged Out No [...]
--- OUTSIDE RECORDS SUMMARY | 2023-06-21 22:07 | External Medical Summary | Summary of Care ---
Author Name Unknown Organization [facility] Address [address] [place] [address] Phone [phone] Care Team Providers Care Commodities Broker Name Role Phone Unavailable Primary Care Provider Unavailabl e Reason for Visit * Reason Comments Return Visit Encounter Details Date Type Department Care Team Description 03/16/2023 Office Visit Gynecology/Obstetric s Jaden Bustos [address] [facility] [place] [address] Valery Tobias CRNP [address] [facility] [place] [address] Nurse Akash [facility] Return Carla [address] [place] [address] Supervision of high risk in second trimester*; Abnormal glucose tolerance in mother complicating ; Multigravida of advanced maternal age in second trimester; Health counseling Allergies No known active allergiesdocumented as of this encounter (statuses as of 03/16/2023) Medications Medication Sig Dispensed Refills Start Date End Date Status 28-0.8 MG Oral Tablet Take by mouth. 0 Active documented as of this encounter (statuses as of 03/16/2023) Active Problems Problem Noted Date Abnormal glucose [...] resolved Need for food assistance referred to [facility] and local food [place] 02/08/2023 Whit Velázquez RN 02/08/2023 Problem Action Taken Date entered Entered by Date resolved Current needs or questions Patient denies having any current needs or questions 03/16/2023 Whit Velázquez RN 03/16/2023 , supervision, high-risk 2022 AMA (advanced maternal [...] as of this encounter (statuses as of 03/16/2023) Resolved Problems Problem Noted Date Resolved Date Encounter for prescription for nuvaring 03/31/20 16 03/16/2023 documented as of this encounter (statuses as of 03/16/2023) Immunizations Name Administration Dates Next Due TDAP [...] Reading Time Taken Comments Blood Pressure 102/60 03/16/2023 8:36 AM EDT Pulse - - Temperature - - Respiratory Rate - - Oxygen Saturation - - Inhaled Oxygen Concentration - - Weight 82.1 kg (181 lb) 03/16/2023 8:36 AM EDT Height - - Body Mass Index 31.07 02/08/2023 11:30 AM EDT documented in this encounter Progress Notes * SHELBI Powell - 03/16/2023 8:39 AM EDT 26w 4d Reviewed [facility]. Baby moving well. No ctx, leaking/bleeding. Growth scan with MFM scheduled for next week. Ordered a breast pump. Discussed labs, including 3 hr GTT, to be completed with next visit. Reviewed Tdap recommendation in 3rd trimester. 2 week return SHELBI Morin documented in this encounter Nursing Notes * Whit Velázquez RN - 03/16/2023 8:53 AM EDT Patient seen by [facility] Dough Brake Machine Operator. Patient denies any questions or concerns. Whit Velázquez RN * Cesia Salzaar LPN - 03/16/2023 8:37 AM EDT 26w4d Denies vaginal bleeding/rom + movement No new concerns documented in this encounter Plan of Treatment Upcoming Encounters Date Type Specialty Care Team Description 03/25/2023 Imaging Radiology 04/07/2023 Laboratory Laboratory Tj Bustos [address] [place] [address] 04/07/2023 Office Visit Gynecology Obstetrics Backer, SHELBI Mcdowell [address] [place] [address] Nurse Akash [facility] Return Carla [address] [place] [address] Scheduled Orders Name Type Priority Associated Diagnoses Orde r Schedule CBC WITH WBC DIFFERENTIAL AND ANEMIA REFLEX WORKUP Lab Routine Supervision of high risk in second trimester Expected: 03/30/2023 (Approximate), Expires: 03/16/2024 SYPHILIS ANTIBODY SCREEN WITH REFLEX TO RPR Lab Routine Supervision of high risk in second trimester Expected: 03/30/2023 (Approximate), Expires: 03/16/2024 GESTATIONAL GLUCOSE TOLERANCE, 3 HOUR Lab Routine Abnormal glucose tolerance in mother complicating Expected: 03/30/2023 (Approximate), Expires: 03/16/2024 Health Maintenance Due Date Last Done Comments Diabetes Screening 1980 Hepatitis B (1 of 3 - 3-dose series) 1980 Lipid Panel 1980 COVID-19 Vaccine (#1) 03/27/1981 Depression Screening, Annual for Pts 12 and Over 1992 HPV/Co-Test 2010 DTaP,Tdap,and Td Vaccines (2 - Td or Tdap) 08/09/2016 08/09/2006 Mammogram 03/17/2023 03/17/2022 Influenza Vaccine (FLU shot) (#1) 2023 Cervical Cancer Screening 03/11/2025 Pap Smear 03/11/2025 03/11/2022, 03/10, 03/31/2016, Additional history exists Hepatitis [...] Diagnoses Diagnosis Supervision of high risk in second trimester- Primary Unspecified high-risk Abnormal glucose tolerance in mother complicating Abnormal maternal glucose tolerance, complicating , childbirth, or the puerperium, unspecified as to episode of care Multigravida of advanced maternal age in second trimester Health counseling Other specified counseling documented in this encounter
--- OUTSIDE RECORDS SUMMARY | 2023-06-21 22:07 | External Medical Summary ---
Author Name Unknown Address Unknown Organization [id number]:[facility] [place] [address] [facility] [address] Laboratory Report Ordering Provider Test Date Status MARY JO MORAN 01/13/2023 08:11:42 Final Observation Date Value Abnormality Reference (Units ) Status MYCODE SPECIMEN-SST 01/13/2023 08:11:42 Freezing of extracted DNA, whole blood and/or serum. Final Performing Location LABORATORY C - [address] [facility] [address]
--- OUTSIDE RECORDS SUMMARY | 2023-06-21 22:07 | External Medical Summary | Summary of Care ---
Author Name Unknown Organization [facility] Address [address] [facility] [place] [address] Phone [phone] Care Team Providers Care Sandblaster Glass Name Role Phone Unavailable Primary Care Provider Unavailabl e Reason for Visit * Reason Comments [facility] Return Encounter Details Date Type Department Care Team Description 01/08/2023 Office Visit Gynecology/Obstetric s Jaden Bustos [address] [facility] [place] [address] Sally White PA-C [address] [place] [address] Nurse Akash [facility] Return Carla [address] [place] [address] Multigravida of advanced maternal age in second trimester* Allergies No known active allergiesdocumented as of this encounter (statuses as of 01/08/2023) Medications Medication Sig Dispensed Refills Start Date End Date Status 28-0.8 MG Oral Tablet Take by mouth. 0 Active documented as of this encounter (statuses as of 01/08/2023) Active Problems Problem Noted Date Health counseling 01/08/2023 Overview: Problem Action Taken [...] as of this encounter (statuses as of 01/08/2023) Immunizations Name Administration Dates Next Due TDAP [...] Sign Reading Time Taken Comments Blood Pressure 98/66 01/08/2023 11:36 AM EDT Pulse - - Temperature - - Respiratory Rate - - Oxygen Saturation - - Inhaled Oxygen Concentration - - Weight 75.8 kg (167 lb) 01/08/2023 11:36 AM EDT Height 162.6 cm (5' 4") 01/08/2023 11:36 AM EDT Body Mass Index 28.67 01/08/2023 11:36 AM EDT documented in this encounter Progress Notes * Sally White PA-C - 01/08/2023 12:19 PM EDT 17w0d W/o complaints. Denies leaking fluid, vaginal bleeding, or contractions. Some quickening. Pr-cr urine collected. NIPT low risk girl. S/p MFM initial consult, anatomy scheduled with them in 2 weeks. Counseled on MSAFP for ONTD, patient accepts will complete today. Still needs early glucola, agreeable to completing today following appt RTC in 4 weeks Sally White PA-C documented in this encounter Nursing Notes * Whit Velázquez RN - 01/08/2023 11:50 AM EDT Patient seen by [facility] Service Director. Patient denies any questions or concerns. have you cut down with your smoking n/a have you quit n/a have you seen a clinical pharmacologist no have you seen a social worker aide no are you receiving counseling no have you received dental care during your no are you enrolled in WIC No do you receive food stamps or sahu assistance no Whit Velázquez RN * Dulce Pardo LPN - 01/08/2023 11:42 AM EDT 17w0d Denies concerns. documented in this encounter Plan of Treatment Upcoming Encounters Date Type Specialty Care Team Description 01/22/2023 Office Visit Maternal Medicine Anali Beebe MD [address] [place] [address] 01/22/2023 Imaging Radiology 02/08/2023 Office Visit Gynecology Obstetrics Sally White PA-C [address] [place] [address] Nurse Akash [facility] Return Carla [address] [place] [address] Pending Results Name Type Priority Associated Diagnoses Date /Time PROTEIN/ CREATININE RATIO, URINE Lab Routine Multigravida of advanced maternal age in second trimester 01/08/2023 12:21 PM EDT Scheduled Orders Name Type Priority Associated Diagnoses Orde r Schedule MATERNAL SERUM AFP Lab Routine Multigravida of advanced maternal age in second trimester Ordered: 01/08/2023 Health Maintenance Due Date Last Done Comments [...] advanced maternal age in second trimester- Primary documented in this encounter
--- OUTSIDE RECORDS SUMMARY | 2023-06-21 22:07 | External Medical Summary ---
Author Name Unknown Address Unknown Organization [id number]:LABORATORY [facility] [place] [address] - [address] [place] [address] Laboratory Report Ordering Provider Test Date Status YUKI VILLANUEVA 01/13/2023 11:13:56 Final Observation Date Value Abnormality Reference (Units ) Status Glucose [Mass/volume] in Serum or Plasma --3 hours post dose glucose 01/13/2023 11:13:56 108 70-139 (mg/dL) Final Performing Location LABORATORY [place] [address] [place] [address]
--- OUTSIDE RECORDS SUMMARY | 2023-06-21 22:07 | External Medical Summary | Summary of Care ---
Author Name Unknown Organization [facility] Address [address] [place] [address] Phone [phone] Care Team Providers Care Marine [employer] Task Force Planners Name Role Phone Unavailable Primary Care Provider Unavailabl e Reason for Visit * Reason Onset Date Comments Referral 12/11/2022 Scheduled Encounter Details Date Type Department Care Team Description 12/11/2022 Telephone Repairer Engine Production Obstetrics Maternal Medicine, [place] [address], [place] [phone] [place], Nurse Repairer Engine Production [facility] [address] [place], [place] [phone] Referral (Scheduled) Allergies No known active allergiesdocumented as of [...] Miscellaneous Notes * Telephone Encounter - Rema Espinozajw [place], [facility] - 12/21/2022 1:31 PM EDT As QNATAL was LR, referral has been cancelled. Respectfully, Rema Acosta Genetic Counseling [place] [facility] Maternal Medicine For further questions call the Genetic Counselor at + . * Telephone Encounter - JOSEP Bui - 12/18/2022 11:22 AM EDT Spoke to patient about their genetic counseling referral. The patient's only concern was AMA and APA. Since this is not an indication for an appointment with a GC alone we are going to wait for the QNATAL to result and follow up with an appointment if needed. Will reach back out with QNATAL results and schedule if needed and if not the referral will be canceled at that time. Minoo Carlisle Genetic Counseling [place] [facility] Maternal Medicine For further questions call the Genetic Counselor at . * Telephone Encounter - KATE Maldonado - 12/11/2022 4:19 PM EDT pt. is aware of d/t of appt.~KH * Telephone Encounter - KATE Benítez - 12/11/2022 11:44 AM EDT Called pt, was able to schedule video and long scan Short scan, only thing pulling in time frame was an appt for 1 today and pt cant make that the one after that was 5-15 is this okay? * Telephone Encounter - Rosa Gomez MED ASSIST - 12/11/2022 10:43 AM EDT Dating Scan Complete Estimated Date of Delivery: 06/18/23 Please schedule for 45 MINUTE CONSULT SIMPLE MEDICAL WITH PROGRAMMING EQUIPMENT OPERATOR, in time frame of next available or atpatient's earliest convenience at location [facility] with the indication of AMA (42 at delivery). Please schedule limited anatomy between [id number] weeks (now-12/17/22) Please schedule anatomy between 19-21 weeks (01/22/23-02/05/23). Referring Provider:SHELBI Chavez documented in this encounter Plan of Treatment Upcoming Encounters Date Type Specialty Care Team Description 01/08/2023 Office Visit Gynecology Obstetrics Sally White PA-C [address] [facility] [address] Nurse Akash Healthy Beginnings Return Carla [address] [place] [address] 01/22/2023 Office Visit Maternal Medicine Anali Beebe MD [address] [place] [phone] 01/22/2023 Imaging Radiology Health Maintenance Due Date [...]
--- OUTSIDE RECORDS SUMMARY | 2023-06-21 22:07 | External Medical Summary ---
Author Name Unknown Address Unknown Organization K01:LABORATORY [facility] - [address] [facility] [address] Laboratory Report Ordering Provider Test Date Status MARY JO MORAN 01/08/2023 13:28:15 Final Observation Date Value Abnormality Reference (Units ) Status MYCODE SPECIMEN-SST 01/08/2023 13:28:15 Freezing of extracted DNA, whole blood and/or serum. Final Performing Location LABORATORY C - [address] [facility] [address]
--- OUTSIDE RECORDS SUMMARY | 2023-06-21 22:07 | External Medical Summary | Summary of Care ---
Author Name Unknown Organization [facility] Address [address] [place] [address] Phone [phone] Care Team Providers Care Living Skills Advisor Name Role Phone Unavailable Primary Care Provider Unavailabl e Reason for Visit * Reason Comments Ultrasound Encounter Details Date Type Department Care Team Description 01/22/2023 Office Visit Stake Driver Obstetrics Maternal Medicine, [place] [address] [place], [place] [phone] Anali Beebe MD [address] [place] [address] Multigravida of advanced maternal age in second trimester*; Abnormal glucose tolerance in mother complicating Allergies No known active allergiesdocumented as of this encounter (statuses as of 01/25/2023) Medications Medication Sig Dispensed Refills Start Date End Date Status 28-0.8 MG Oral Tablet Take by mouth. 0 Active documented as of this encounter (statuses as of 01/25/2023) Active Problems Problem Noted Date Abnormal glucose [...] as of this encounter (statuses as of 01/25/2023) Immunizations Name Administration Dates Next Due TDAP [...] Riojas is at 19w0d who presents to [facility] for an ultrasound and follow-up of her high risk . After connecting through [employer], patient was verified with two unique identifiers. Patient (or authorized legal b2b sales representative) was then informed that this was [...] that I have reviewed their record in [facility] and presented the opportunity for them to [...] Riojas was instructed to notify her primary irrigation installation specialist if she felt regular contractions (approximately every [...] Obstetrics Sally White PA-C [address] [place] [address] Nurse Akash Healthy Beginnings Return Carla [address] [place] [address] 03/25/2023 Imaging Radiology Scheduled Orders Name Type [...]
--- OUTSIDE RECORDS SUMMARY | 2023-06-21 22:07 | External Medical Summary | Summary of Care ---
Author Name Unknown Organization [facility] Address [address] [facility] [place] [address] Phone [phone] Care Team Providers Care Lead Warehouse Associate Name Role Phone Unavailable Primary Care Provider Unavailabl e Reason for Visit * Reason Comments Outpatient Testing Encounter Details Date Type Department Care Team Description 01/08/2023 Laboratory [facility] [address] [facility] [address] [place] [address] Multigravida of advanced maternal age in first trimester; [employer] Other*[id number] Allergies No known active allergiesdocumented as of [...] any current needs or questions 01/08/2023 Whit Velázquez, RN 01/08/2023 Supervision of high risk in [...] Office Visit Maternal Medicine Anali Beebe MD [address] [address] 01/22/2023 Imaging Radiology 02/08/2023 Office Visit Gynecology Obstetrics Sally White PA-C [address] [facility] [place] [address] Nurse Akash Healthy Beginnings Return Carla [address] [place] [address] Pending Results Name Type Priority Associated Diagnoses Date /Time 50-G GESTATIONAL GLUCOSE, 1 HOUR Lab Routine Multigravida of advanced maternal age in first trimester 01/08/2023 1:28 PM EDT MYCODE SUBSEQUENT ADULT Lab Routine [employer] Other*[id number] 01/08/2023 1:28 PM EDT MYCODE SST1 Lab Routine [employer] Other*[id number] 01/08/2023 1:28 PM EDT MYCODE SST2 Lab Routine [employer] Other*[id number] 01/08/2023 1:28 PM EDT Health Maintenance Due Date Last Done [...] Diagnosis Multigravida of advanced maternal age in first trimester [employer] Other*[id number] documented in this encounter
--- OUTSIDE RECORDS SUMMARY | 2023-06-21 22:07 | External Medical Summary | Summary of Care ---
Author Name Unknown Organization [facility] Address [address] [place] [address] Phone [phone] Care Team Providers Care Power House Control Room Operator Name Role Phone Unavailable Primary Care Provider Unavailabl e Reason for Visit * Reason Comments Outpatient Testing Encounter Details Date Type Department Care Team Description 01/13/2023 Laboratory Laboratory, [facility] 132 [facility] [place] [address] [facility] 132 [facility] [place] [address] [employer] Other*[id number]; Abnormal glucose tolerance in mother complicating Allergies No known active allergiesdocumented as of this encounter (statuses as of 01/13/2023) Medications Medication Sig Dispensed Refills Start Date End Date Status 28-0.8 MG Oral Tablet Take by mouth. 0 Active documented as of this encounter (statuses as of 01/13/2023) Active Problems Problem Noted Date Abnormal glucose tolerance in mother com plicating 01/11/2023 Overview: Failed early glucola. 3hr GTT ordered Health counseling 01/08/2023 Overview: Problem Action Taken [...] as of this encounter (statuses as of 01/13/2023) Immunizations Name Administration Dates Next Due TDAP [...] Visit Maternal Medicine Anali Beebe MD [address] [address] 01/22/2023 Imaging Radiology 02/08/2023 Office Visit Gynecology Obstetrics Sally White PA-C [address] [facility] [address] Nurse Akash Healthy Beginnings Return Carla [address] [place] [address] Pending Results Name Type Priority Associated Diagnoses Date /Time MYCODE SUBSEQUENT ADULT Lab Routine [employer] Other*[id number] 01/13/2023 8:11 AM EDT GESTATIONAL GLUCOSE TOLERANCE, 3 HOUR Lab Routine Abnormal glucose tolerance in mother complicating 01/13/2023 8:11 AM EDT MYCODE SST1 Lab Routine [employer] Other*[id number] 01/13/2023 8:11 AM EDT MYCODE SST2 Lab Routine [employer] Other*[id number] 01/13/2023 8:11 AM EDT 100-G GESTATIONAL GLUCOSE, 3 HOUR Lab Routine Abnormal glucose tolerance in mother complicating 01/13/2023 11:13 AM EDT Health Maintenance Due Date Last [...] Date/Time Associated Diagnosis Comments 100-G GESTATIONAL GLUCOSE, 2 HOUR Routine 01/13/2023 10:15 AM EDT Abnormal glucose tolerance in mother complicating 100-G GESTATIONAL GLUCOSE, 1 HOUR Routine 01/13/2023 9:15 AM EDT Abnormal glucose tolerance in mother complicating 100-G GESTATIONAL GLUCOSE, FASTING Routine 01/13/2023 8:11 AM EDT Abnormal glucose tolerance in mother complicating documented in this encounter Results * 100-G GESTATIONAL GLUCOSE, 2 HOUR (01/13/2023 10:15 AM EDT) 100-g Gestational Glucose, 2 Hour 147 70 - 154 mg/dL 01/13/2023 11:04 AM EDT LABORATORY [facility] 57-10 Blood Venous blood specimen / Unknown Venipuncture / Unknown 01/13/2023 10:15 AM EDT 01/13/2023 10:15 AM EDT Marcy MARIO LAB BLOOD ORDERABLES LABORATORY [place] 57-10 132 [facility] [place] [address] * (ABNORMAL) 100-G GESTATIONAL GLUCOSE, 1 HOUR (01/13/2023 9:15 AM EDT) 100-g Gestational Glucose, 1 Hour 185(H) 70 - 179 mg/dL 01/13/2023 10:09 AM EDT LABORATORY [place] 57-10 Blood Venous blood specimen / Unknown Venipuncture / Unknown 01/13/2023 9:15 AM EDT 01/13/2023 9:15 AM EDT Marcy MARIO LAB BLOOD ORDERABLES LABORATORY [place] 57-10 [address] [place] [address] * 100-G GESTATIONAL GLUCOSE, FASTING (01/13/2023 8:11 AM EDT) 100-g Gestational Glucose, Fasting 86 70 - 94 mg/dL 01/13/2023 8:59 AM EDT LABORATORY [place] 57-10 Blood Venous blood specimen / Unknown Venipuncture / Unknown 01/13/2023 8:11 AM EDT 01/13/2023 8:11 AM EDT Narrative LABORATORY [place] 57-10 - 01/13/2023 8:59 AM EDT Based on ACOG guideline, gestational diabetes mellitus is diagnosed when any of the following is met: Fasting is greater than or equal to 95 mg/dL 1 hour is greater than or equal to 180 mg/dL 2 hour is greater than or equal to 155 mg/dL 3 hour is greater than or equal to 140 mg/dL Marcy MARIO LAB BLOOD ORDERABLES LABORATORY [place] 57[address] [place] [address] documented in this encounter Visit Diagnoses Diagnosis [employer] Other*[id number] Abnormal glucose tolerance in mother complicating Abnormal maternal glucose tolerance, complicating , childbirth, or the puerperium, unspecified as to episode of care documented in this encounter
--- OUTSIDE RECORDS SUMMARY | 2023-06-21 22:07 | External Medical Summary | Summary of Care ---
Author Name Unknown Organization [facility] Address [address] [place] [address] Phone [phone] Care Team Providers Care Conveyor Feeder Offbearer Name Role Phone Unavailable Primary Care Provider Unavailabl e Encounter Details Date Type Department Care Team Description 03/25/2023 Office Visit Hospitality Aide Obstetrics Maternal Medicine, [facility] [address] [place] [address] Nuris Peck, DO [address] [place], [place] [phone] Multigravida of advanced maternal age in third trimester*; Ultrasound for screening for growth restriction; 27 weeks gestation of Allergies No known active allergiesdocumented as of this encounter (statuses as of 03/25/2023) Medications Medication Sig Dispensed Refills Start Date End Date Status 28-0.8 MG Oral Tablet Take by mouth. 0 Active documented as of this encounter (statuses as of 03/25/2023) Active Problems Problem Noted Date Abnormal glucose [...] resolved Need for food assistance referred to [facility] and local food [employer] 02/08/2023 Whit Velázquez RN 02/08/2023 Problem Action [...] as of this encounter (statuses as of 03/25/2023) Resolved Problems Problem Noted Date Resolved Date Encounter for prescription for nuvaring 03/31/20 16 03/16/2023 documented as of this encounter (statuses as of 03/25/2023) Immunizations Name Administration Dates Next Due TDAP [...] as of this encounter Progress Notes * Nuris Doan DO - 03/25/2023 8:53 AM EDT Elsi presented today at 27w6d for an ultrasound for the following indications: Multigravida of advanced maternal age in third trimester Ultrasound for screening for growth restriction 27 weeks gestation of Patient presented at 27w 6d for growth assessment. Normal growth with EFW 1236 g at 62%ile. Normal RADHAMES at 15.4 cm. Cephalic presentation. I reviewed the ultrasound images. Elsi was given the opportunity to meet with me if she had any questions. Please refer to the ultrasound report for additional details about today's ultrasound examination. RECOMMENDATIONS: Follow up with MFM for ultrasound as clinically indicated. Weekly NSTs at 38 weeks. See prior formal MFM consultation note. Thank you for allowing us to participate in the care of this patient. Please call with any questions. Nuris Peck DO 03/25/2023 8:53 AM documented in this encounter Plan of Treatment Upcoming Encounters Date Type Specialty Care Team Description 04/07/2023 Laboratory Tj Martinez [address] [place] [address] 04/07/2023 Office Visit Gynecology Obstetrics Backer, SHELBI Mcdowell [address] [place] [address] Nurse Akash Healthy Beginnings Return Carla [address] [place] [address] Health Maintenance Due Date Last Done Comments [...] advanced maternal age in third trimester- Primary Ultrasound for screening for growth restriction screening for growth retardation using ultrasonics 27 weeks gestation of state, incidental documented in this encounter
--- OUTSIDE RECORDS SUMMARY | 2023-06-21 22:07 | External Medical Summary | Summary of Care ---
Author Name Unknown Organization [facility] Address [address] [facility] [place] [address] Phone [phone] Care Team Providers Care Media Theorist And Author Of Name Role Phone Unavailable Primary Care Provider Unavailabl e Reason for Visit * Reason Comments Healthy Beginnings Return Encounter Details Date Type Department Care Team Description 01/08/2023 Office Visit Gynecology/Obstetric s Jaden Bustos [address] [facility] [place] [address] Sally White PA-C [address] [place] [address] Nurse Akash Healthy Beginnings Return Carla [address] [place] [address] Multigravida of advanced maternal age in second [...] 01/08/2023 11:50 AM EDT Patient seen by [facility] 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 Patient denies any questions or concerns. have you cut down with your smoking n/a have you quit n/a have you seen a faith doctor no have you seen a manager social services no are you receiving counseling no have [...] Office Visit Maternal Medicine Anali Beebe MD [address] [place] [address] 01/22/2023 Imaging Radiology 02/08/2023 Office Visit Gynecology Obstetrics Sally White PA-C [address] [place] [address] Nurse Akash Healthy Beginnings Return Carla [address] [place] [address] Pending Results Name Type Priority Associated Diagnoses [...]
--- OUTSIDE RECORDS SUMMARY | 2023-06-21 22:07 | External Medical Summary | Summary of Care ---
Author Name Unknown Organization [facility] Address [address] [place] [address] Phone [phone] Care Team Providers Care Participant Administrator Name Role Phone Unavailable Primary Care Provider Unavailabl e Encounter Details Date Type Department Care Team Description 01/25/2023 Orders Only Outcomes Research Department [address] [place] [address] Alena Balderrama CHRA [employer] Other*[id number] Allergies No known active allergiesdocumented as of [...] RN 01/08/2023 Supervision of high risk in fi rst [...] Obstetrics Sally White PA-C [address] [place] [address] [phone] (FaxNurse Shakira Healthy Beginnings Return Carla [address] [address] 03/25/2023 Imaging Radiology Scheduled Orders Name Type Priority Associated Diagnoses Orde r Schedule MYCODE SUBSEQUENT ADULT Lab Routine [employer] Other*[id number] Every 6 Months for 2 Occurrences starting 01/25/2023 until 02/14/2024 Health Maintenance Due Date Last Done Comments [...] as of this encounter Visit Diagnoses Diagnosis [employer] Other*[id number] documented in this encounter
--- OUTSIDE RECORDS SUMMARY | 2023-06-21 22:07 | External Medical Summary ---
Author Name Unknown Address Unknown Organization K0G[facility] [address] [place] [address] Laboratory Report Ordering Provider Test Date Status YUKI VILLANUEVA 01/13/2023 10:15:32 Final Observation Date Value Abnormality Reference (Units ) Status Glucose, 2-hr post glucose challenge 01/13/2023 10:15:32 147 70-154 (mg/dL) Final Performing Location LABORATORY [facility] 57-1 0 - [address] [place] [address]
--- OUTSIDE RECORDS SUMMARY | 2023-06-21 22:07 | External Medical Summary ---
Author Name Unknown Address Unknown Organization K01:[place] [facility] [place] [address] [place] [address] [address] Laboratory Report Ordering Provider Test Date Status NEREIDA VILLANUEVALIBBY 01/12/2023 10:24:48 Final Observation Date Value Abnormality Reference (Units ) Status Urine Volume 01/12/2023 10:24:48 1800 (mL) Final Creatinine, Urine 01/12/2023 10:24:48 83 (mg/dL) Final Creatinine [Moles/volume] in 24 hour Urine 01/12/2023 10:24:48 1.494 0.800-1.800 (g/24 hours) Final Creatinine Clearance 01/12/2023 10:24:48 194 Above high normal 75-115 (mL/min) Final Creatinine 01/12/2023 10:24:48 0.5 0.5-1.0 (mg/dL) Final Performing Location [place] [facility] [place] [address] [place] [address]
--- OUTSIDE RECORDS SUMMARY | 2023-06-21 22:07 | External Medical Summary ---
Author Name Unknown Address Unknown Organization K0G[facility] [address] [place] [address] Laboratory Report Ordering Provider Test Date Status YUKI VILLANUEVA 01/13/2023 09:15:32 Final Observation Date Value Abnormality Reference (Units ) Status Glucose [Mass/volume] in Serum or Plasma --1 hour post dose glucose 01/13/2023 09:15:32 185 Above high normal 70-179 (mg/dL) Final Performing Location LABORATORY [facility] 57-1 0 - [address] [place] [address]
--- OUTSIDE RECORDS SUMMARY | 2023-06-21 22:07 | External Medical Summary ---
Author Name Unknown Address Unknown Organization K0G:LABORATORY [place] 57-10 - [address] [place] [address] Laboratory Report Ordering Provider Test Date Status RICHYUKI 01/13/2023 08:11:42 Final Based on ACOG guideline, ges tational [...] Abnormality Reference (Units ) Status Glucose, fasting 01/13/2023 08:11:42 86 70- 94 (mg/dL) Final Performing Location LABORATORY [facility] 57-1 0 - [address] [place] [address]
--- OUTSIDE RECORDS SUMMARY | 2023-06-21 22:07 | External Medical Summary ---
Author Name Unknown Address Unknown Organization K0G:LABORATORY [place] 57-10 - [address] [place] [address] Laboratory Report Ordering Provider Test Date Status YUKI VILLANUEVA 01/12/2023 10:24:48 Final Observation Date Value Abnormality Reference (Units ) Status Creatinine 01/12/2023 10:24:48 0.5 0.5-1.0 (mg/dL) Final Glomerular filtration rate/1.73 sq M.predicted [Volume Rate/Area] in Serum, Plasma or Blood by Creatinine-based formula (CKD-EPI) 01/12/2023 10:24:48 >90 >=60 (mL/min) Final eGFR is calculated based on the CKD-EPI 2020 equation Performing [facility] 0 - [address] [place] [address]
--- OUTSIDE RECORDS SUMMARY | 2023-06-21 22:07 | External Medical Summary | Summary of Care ---
Author Name Unknown Organization [facility] Address [address] [place] [address] Phone [phone] Care Team Providers Care Hand Outside Cutter Name Role Phone Unavailable Primary Care Provider Unavailabl e Reason for Visit * Reason Comments Return Visit Encounter Details Date Type Department Care Team Description 02/08/2023 Office Visit Gynecology/Obstetric s Noble'alaina Bustos [address] [facility] [place] [address] Sally White PA-C [address] [facility] [address] Nurse Akash Healthy Beginnings Return Carla [address] [place] [address] Multigravida of advanced maternal age in second trimester*; Abnormal glucose tolerance in mother complicating Allergies No known active allergiesdocumented as of this encounter (statuses as of 02/08/2023) Medications Medication Sig Dispensed Refills Start Date End Date Status 28-0.8 MG Oral Tablet Take by mouth. 0 Active documented as of this encounter (statuses as of 02/08/2023) Active Problems Problem Noted Date Abnormal glucose [...] resolved Need for food assistance referred to [facility] and local food [employer] 02/08/2023 Whit Velázquez RN 02/08/2023 Supervision of high risk in rst trimester [...] as of this encounter (statuses as of 02/08/2023) Immunizations Name Administration Dates Next Due TDAP [...] Sign Reading Time Taken Comments Blood Pressure 100/62 02/08/2023 11:30 AM EDT Pulse - - Temperature - - Respiratory Rate - - Oxygen Saturation - - Inhaled Oxygen Concentration - - Weight 79.3 kg (174 lb 12.8 oz) 023 11:30 AM EDT Height 162.6 cm (5' 4") 02/08/2023 11:3 0 AM EDT Body Mass Index 30 02/08/2023 11:30 AM EDT documented in this encounter Progress Notes * Sally White PA-C - 02/08/2023 11:57 AM EDT 21w3d Without complaints. Anatomy completed with MFM, will be returning in 9 weeks from last for growth. Denies leaking of fluid, vaginal bleeding, or contractions. Affirms FM. RTC in 4 weeks Sally White PA-C documented in this encounter Nursing Notes * Whit Velázquez RN - 02/08/2023 12:02 PM EDT Patient seen by [facility] [employer] Worker. Patient denies any questions or concerns. * SYLVAIN Pleitez - 02/08/2023 11:48 AM EDT 21w3d Pt denies any concerns documented in this encounter Plan of Treatment Upcoming Encounters Date Type Specialty Care Team Description 03/11/2023 Office Visit Gynecology Obstetrics Backer, SHELBI Mcdowell [address] [place] [address] Nurse Akash Healthy Beginnings Return Carla [address] [place] [address] 03/25/2023 Imaging Radiology Health Maintenance Due Date Last Done Comments Diabetes Screening 1980 Hepatitis B (1 of 3 - 3-dose series) 1980 Lipid Panel 1980 COVID-19 Vaccine (#1) 03/27/1981 Depression Screening, Annual for Pts 12 and Over 1992 DTaP,Tdap,and Td Vaccines (2 - Td or Tdap) 08/09/2016 08/09/2006 Mammogram 03/17/2023 03/17/2022 Influenza Vaccine (FLU shot) (#1) 2023 Pap Smear 03/11/2027 03/11/2022, 03/10, 03/31/2016, [...]
--- OUTSIDE RECORDS SUMMARY | 2023-06-21 22:07 | External Medical Summary | Summary of Care ---
Author Name Unknown Organization [facility] Address [address] [place] [address] Phone [phone] Care Team Providers [facility] Intern Name Role Phone Unavailable Primary Care Provider Unavailabl e Encounter Details Date Type Department Care Team Description 03/25/2023 Office Visit Medical Parasitologist Obstetrics Maternal Medicine, [facility] [address] [place] [address] Nuris Peck, DO [address], [place] [id number] Multigravida of advanced maternal age in third [...] resolved Need for food assistance referred to [facility] and local food [employer] 02/08/2023 Whit Velázquez RN 02/08/2023 Problem Action [...] 04/07/2023 Laboratory Tj Martinez [address] [place] [address] 04/07/2023 Office Visit Gynecology Obstetrics Backer, SHELBI Mcdowell [address] [place] [address] Nurse [facility] Return Carla [address] [place] [address] Health Maintenance Due Date Last Done Comments [...]
--- OUTSIDE RECORDS SUMMARY | 2023-06-21 22:07 | External Medical Summary | Summary of Care ---
Author Name Unknown Organization [facility] Address [address] [place] [address] Phone [phone] Care Team Providers [facility] Director Name Role Phone Unavailable Primary Care Provider Unavailabl e Reason for Visit * Reason Comments Outpatient Testing Encounter Details Date Type Department Care Team Description 01/12/2023 Laboratory [facility] [address] [facility] [address] [facility] [address] [place] [address] Multigravida of advanced maternal age in first trimester Allergies No known active allergiesdocumented as of this encounter (statuses as of 01/12/2023) Medications Medication Sig Dispensed Refills Start Date End Date Status 28-0.8 MG Oral Tablet Take by mouth. 0 Active documented as of this encounter (statuses as of 01/12/2023) Active Problems Problem Noted Date Abnormal glucose tolerance in mother com plicating 01/11/2023 Overview: Failed early glucola. 3hr GTT ordered Health counseling 01/08/2023 Overview: Problem Action Taken Date entered Entered by Date resolved Current needs or questions Patient denies having any current needs or questions 01/08/2023 Whit Velázquez RN 01/08/2023 [facility] 12/16/2022 AMA (advanced maternal age) multigravida [...] as of this encounter (statuses as of 01/12/2023) Immunizations Name Administration Dates Next Due TDAP [...] Encounters Date Type Specialty Care Team Description 01/13/2023 Laboratory [facility] [address] [facility] [address] 01/22/2023 Office Visit Maternal Medicine Anali Beebe MD [address] [address] 01/22/2023 Imaging Radiology 02/08/2023 Office Visit Gynecology Obstetrics Sally White PA-C [address] [place] [address] Nurse [facility]ash [facility] Return Carla [address] [facility] [address] Pending Results Name Type Priority Associated Diagnoses Date /Time CREATININE CLEARANCE Lab Routine Multigravida of advanced maternal age in first trimester 01/12/2023 10:24 AM EDT CREATININE CLEARANCE, 24 HR URINE Lab Routine Multigravida of advanced maternal age in first trimester 01/12/2023 10:24 AM EDT Health Maintenance Due Date Last [...] Procedure Name Priority Date/Time Associated Diagnosis Comments CREATININE Routine 01/12/2023 10:24 AM EDT Multigravida of advanced maternal age in first trimester documented in this encounter Results * CREATININE (01/12/2023 10:24 AM EDT) Creatinine 0.5 0.5 - 1.0 mg/dL 01/12/2023 11:41 AM EDT [facility] Estimated Glomerular Filtration Rate >90 >=60 mL/min 01/12/2023 11:41 AM EDT [facility] Comment:eGFR is calculated b ased on the CKD-EPI 2020 equation Blood Venous blood specimen / Unknown Venipuncture / Unknown 01/12/2023 10:24 AM EDT 01/12/2023 10:24 AM EDT Marcy MARIO LAB BLOOD ORDERABLES [facility] [address] [facility] [place] [address] documented in this encounter Visit Diagnoses Diagnosis Multigravida of advanced maternal age in first trimester documented in this encounter
--- OUTSIDE RECORDS SUMMARY | 2023-06-21 22:07 | External Medical Summary ---
Author Name Unknown Address Unknown Organization [id number]:[facility]ATORY [facility] - [address] [facility] [address] Laboratory Report Ordering Provider Test Date Status MARY JO MORAN 01/08/2023 13:28:15 Final Observation Date Value Abnormality Reference (Units ) Status MYCODE SPECIMEN-SST 01/08/2023 13:28:15 Freezing of extracted DNA, whole blood and/or serum. Final Performing Location LABORATORY C - [address] [facility] [address]
== END 2023-06-20 14:48 | disposition home or self-care (01) | DRG 807 ==
LOC: 4S1 20:42 → 4E2 06-19 14:25